=== PATIENT | female | born 1970 | race Caucasian/White ===

== ENCOUNTER 2021-05-21 07:22 | Outpatient (REF) | payer OTHER, SELFPAY ==
--- NOTE | ~2021-05-21 | MM_ITS ---
EXAMINATION: MM SCREENING DIGITAL BREAST TOMOSYNTHESIS, BILATERAL CLINICAL INFORMATION: Screening. Asymptomatic. The lifetime risk of breast cancer based on the Tyrer-Cuzick Model is 13%. COMPARISON: Mammography: 03/20/2019, 06/23/2018, 04/01/2017 TECHNIQUE: Digital breast tomosynthesis is performed in both the craniocaudal and mediolateral oblique views along with computer-aided detection (CAD). Synthesized 2D images are generated from the tomosynthesis. FINDINGS: The breasts are heterogeneously dense, which may obscure small masses (ACR BI-RADS breast composition Category c). There are no significant masses, abnormal calcifications, or other abnormalities. Parenchymal pattern is similar to prior exams. No developing density. Skin contours are smooth. MM/MM tomosynthesis screening BI IMPRESSION: No mammographic evidence of malignancy. ASSESSMENT: BI-RADS 1: Negative RECOMMENDATION: Routine annual mammography screening. This patient's information was entered into a reminder system with a target due date for their next mammogram.
== END 2021-05-21 07:23 | disposition home or self-care (01) ==
LOC: HO.MAMMO 07:22
PROVIDERS: Visit Provider Family Medicine
DX: Z12.31 Encounter for screening mammogram for malignant neoplasm of breast (principal)
CPT/HCPCS: 77063; 77067

== ENCOUNTER 2022-07-13 11:35 | Outpatient (REF) | payer OTHER, SELFPAY ==
--- NOTE | ~2022-07-13 | MM_ITS ---
EXAMINATION: MM SCREENING DIGITAL BREAST TOMOSYNTHESIS, BILATERAL CLINICAL INFORMATION: Screening. The lifetime risk of breast cancer based on the Tyrer-Cuzick Model is 16%. COMPARISON: Mammography: 05/21/2021, 03/20/2019, 06/23/2018 TECHNIQUE: Digital breast tomosynthesis is performed in both the craniocaudal and mediolateral oblique views along with computer-aided detection (CAD). Synthesized 2D images are generated from the tomosynthesis. FINDINGS: The breasts are heterogeneously dense, which may obscure small masses (ACR BI-RADS breast composition Category c). There are no significant masses, abnormal calcifications, or other abnormalities. There is fibronodular parenchymal pattern similar to prior studies. No interval architectural abnormality or developing density. The axilla and skin contours are unremarkable. MM/MM tomosynthesis screening BI IMPRESSION: No mammographic evidence of malignancy. ASSESSMENT: BI-RADS 1: Negative RECOMMENDATION: Routine annual mammography screening. This patient's information was entered into a reminder system with a target due date for their next mammogram.
== END 2022-07-13 11:36 | disposition home or self-care (01) ==
LOC: HO.MAMMO 11:35
PROVIDERS: PCP Family Medicine; Visit Provider Family Medicine
DX: Z12.31 Encounter for screening mammogram for malignant neoplasm of breast (principal)
CPT/HCPCS: 77063; 77067

== ENCOUNTER → 2023-05-11 08:00 | Outpatient (BNV) | payer BC, SELFPAY | PROVIDERS: Visit Provider Psychiatry & Neurology Psychiatry | DX: F31.60 Bipolar disorder, current episode mixed, unspecified (principal) | CPT/HCPCS: 90792; 99213 ==

== ENCOUNTER 2023-05-13 14:52 | Emergency (ER) | payer BC, SELFPAY ==
[2023-05-13 16:02] VITALS: BP 149/88; PULSE 58; RESP 18; TEMP 36.4; O2SAT 98; BMI 37.6
--- NOTE | 2023-05-13 16:04 | ECG_ITS ---
Test Reason : HEADACHE Blood Pressure : / mmHG Vent. Rate : 060 BPM Atrial Rate : 060 BPM P-R Int : 124 ms QRS Dur : 076 ms QT Int : 442 ms P-R-T Axes : 027 058 060 degrees QTc Int : 442 ms Normal sinus rhythm Normal ECG When compared with ECG of 15-MAY-2013 12:49, Vent. rate has decreased BY 33 BPM Referred By: Nathaniel Avendano Electronically Signed By:KELSEY MCFADDEN
--- NOTE | 2023-05-13 16:06 | ED_ITS ---
HPI - General Adult General Chief complaint: Headache Stated complaint: nausea/ headache History of Present Illness HPI narrative: Left before being seen by Provider in the ED. Related Data Home Medications Medication Instructions Recorded Confirmed clonazepam 0.5 mg tablet 0.5 mg PO BID PRN anxiety 05/10/23 05/10/23 gabapentin 300 mg capsule 600 mg PO TID 05/10/23 05/10/23 lamotrigine 100 mg tablet 100 mg PO DAILY 05/10/23 05/10/23 lamotrigine 150 mg tablet 150 mg PO DAILY 05/10/23 05/10/23 lansoprazole 30 mg capsule,delayed 60 mg PO DAILY 05/10/23 05/10/23 release methylphenidate HCl 10 mg tablet 10 mg PO DAILY 05/10/23 05/10/23 topiramate 50 mg tablet 50 mg PO BID 05/10/23 05/10/23 venlafaxine 150 mg 150 mg PO DAILY 05/10/23 05/10/23 capsule,extended release 24 hr ziprasidone HCl 20 mg capsule 20 mg PO DAILY 05/10/23 05/10/23 Previous Rx's Medication Instructions Recorded lithium carbonate 300 mg tablet 900 mg (3 x 300 mg) PO BEDTIME #90 05/11/23 tabs Allergies Allergy/AdvReac Type Severity Reaction Status Date / Time Penicillins [PENICILLINS] Allergy Unknown HIVES Verified 05/13/23 16:02 Sulfa (Sulfonamide Allergy Unknown HIVES Verified 05/13/23 16:02 Antibiotics) [SULFA (SULFONAMIDE ANTIBIOTICS)] [facility] Past Medical History Medical History (Updated 05/16/23 @ 18:41 by MANAV Leung) delivery delivered Pre-diabetes HTN (hypertension) Neuropathy SCA-6 (spinocerebellar ataxia type 6) Surgical History (Updated 05/10/23 @ 11:45 by Adriane Almanza RN) History of tonsillectomy Hx of cholecystectomy Social History Social History Household Members: Children Household Members Other:: Bell's 11 year old son resides with her. Patient Tobacco Use Status: Current everyday Tobacco user Tobacco use type: Cigarette Cigarettes Per Day: 8 Advance Directives: No Advance Directives Information Provided: No Physical Exam ED Vital Signs: Vital Signs - 24 hr 05/13/23 16:02 Temperature 97.5 F Pulse Rate 58 Respiratory Rate 18 Blood Pressure 149/88 H Pulse Oximetry 98 Oxygen Delivery Method Room Air BMI result Body Mass Index 37.6 Course Course Course Narrative: RME: 52 yold female presents to the ED for nuasea, vomtiting, and than headache since yesterday. patient stateas no trauma or chest pain or shortness of breath. NEuro exam is intact. labs, EKG, SARS ordered Medical Decision Making Lab Data 05/13/23 16:47 05/13/23 16:47 Labs: Lab Results 05/13/23 05/13/23 Range/Units 16:47 17:33 WBC 12.4 H (4.8-10.8) X10*3/uL RBC 4.73 (4.20-5.50) X10*6/uL Hgb 15.2 (12.0-16.0) g/dl Hct 45.0 (37.0-47.0) % MCV 95.1 (80.0-98.0) fL MCH 32.1 (27.0-33.0) pg MCHC 33.8 (31.0-35.0) g/dl RDW 11.9 (11.0-16.0) % Plt Count 220 (160-400) X10*3/uL MPV 9.6 (9.4-12.3) fL Immature Gran % (Auto) 0.3 (0.0-0.4) % Neut % (Auto) 79.4 H (45-73) % Lymph % (Auto) 11.4 L (20-40) % [place] % (Auto) 7.2 (2-11) % Eos % (Auto) 1.4 (0-4) % Baso % (Auto) 0.3 (0-2) % Lymph # (Auto) 1.4 (1.2-4.9) X10*3/uL [place] # (Auto) 0.9 (0.1-1.2) X10*3/uL Eos # (Auto) 0.2 (0.0-0.4) X10*3/uL Baso # (Auto) 0.0 (0.0-0.2) X10*3/uL Abs Immat Gran (auto) 0.04 H (0.00-0.03) X10*3/uL Absolute Neuts (auto) 9.9 H (2.0-8.3) x10*3/uL Absolute Nucleated RBC 0.000 (0.0-0.012) X10*3/uL Nucleated RBC % (auto) 0.0 (0.0-0.2) /100WBC PT 11.8 (11.1-13.3) SEC INR 1.0 (0.9-1.1) APTT 32.2 (26.0-36.4) SEC Sodium 138 (135-145) mmol/L Potassium 4.4 (3.3-5.1) mmol/L Chloride 106 (96-108) mmol/L Carbon Dioxide 23 (22-29) mmol/L Anion Gap 13 (12-20) BUN 10 (9-16) mg/dL Creatinine 0.90 (0.5-1.4) mg/dL Estim Creat Clear Calc 98.0 Estimated GFR > 60 Random Glucose 88 (60-115) mg/dL Calcium 9.9 (8.4-10.2) mg/dL Total Bilirubin 0.7 (0.0-1.0) mg/dL AST 19 (5-31) U/L ALT 25 (0-31) U/L Alkaline Phosphatase 61 (39-117) U/L Troponin I High Sens < 2.7 (<3.5-17.0) ng/L Total Protein 7.2 (6.5-8.0) g/dL Albumin 4.4 (3.5-5.0) g/dL Lipase 11 (8-78) U/L Beta HCG, Quant < 2 mIU/mL Urine Color Yellow Urine Appearance Clear Urine pH 7.5 (5.0-9.0) Ur Specific [place] 1.020 (1.005-1.025) Urine Protein Negative (Neg-Trace) mg/dL Urine Glucose (UA) Negative (Negative) mg/dL Urine Ketones Trace (Negative) mg/dL Urine Blood Trace H (Negative) Urine Nitrite Negative (Negative) Ur Leukocyte Esterase Trace H (Negative) Urine RBC 11-20 H (0-2) /HPF Urine WBC 0-5 (0-5) /HPF Ur Squamous Epith Cells 3-5 (0-2) /HPF Urine Bacteria Trace (None Seen) Hyaline Casts 0-2 (0-2) /LPF Urine Test NEGATIVE (NEGATIVE) [place] 0.81 (0.60-1.20) mmol/L Influenza Type A (PCR) NEGATIVE (Negative) Influenza Type B (PCR) NEGATIVE (Negative) RSV RNA Qual (PCR) NEGATIVE (Negative) SARS-CoV-2 RNA (RT-PCR) NEGATIVE (Negative) Discharge Plan Discharge Clinical Impression: Headache Patient Disposition: Left W/O Completing Treatment Prescriptions: No Action lamotrigine 150 mg tablet 150 mg PO DAILY methylphenidate HCl 10 mg tablet 10 mg PO DAILY Patient Comments: Patient reports she has not had in a few days. 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 clonazepam 0.5 mg tablet 0.5 mg PO BID PRN (Reason: anxiety) Patient Comments: Patient took 3 tabs last night before bed d/t having a panic attack. Medication education provided and advised patient to take as prescribed. venlafaxine 150 mg capsule,extended release 24hr 150 mg PO DAILY ziprasidone HCl 20 mg capsule 20 mg PO DAILY Patient Comments: Patient stated she is working with her prescriber and is tapering off this medication. lansoprazole 30 mg capsule,delayed release(DR/EC) 60 mg PO DAILY gabapentin 300 mg capsule 600 mg PO TID lamotrigine 100 mg tablet 100 mg PO DAILY Patient Comments: Patient stated she takes in the morning. topiramate 50 mg tablet 50 mg PO BID Patient Comments: Patient reports she has not taken this in a while however reports she is supposed to be taken this medication. Rx Instructions: Last filled 03/26/23. lithium carbonate 300 mg tablet 900 mg PO BEDTIME Qty: 90 0RF Interventions: LWBS Worksheet Last Done: 05/13/23 20:03 Discharge Date/Time: 05/13/23 20:00
[2023-05-13 16:51] LABS: MANUAL DIFF FLAG NO
[2023-05-13 16:52] LABS: Basophils Percent Auto 0.3 % (0-2); Eosinophils Absolute Auto 0.2 X10*3/uL (0.0-0.4); Eosinophils Percent Auto 1.4 % (0-4); Hemoglobin 15.2 g/dl (12.0-16.0); Imm Gran Abs Auto 0.04 X10*3/uL (0.00-0.03); Imm Gran Pct Auto 0.3 % (0.0-0.4); Lymphocytes Absolute Auto 1.4 X10*3/uL (1.2-4.9); Lymphocytes Percent Auto 11.4 % (20-40); Mean Corpuscular HGB Conc 33.8 g/dl (31.0-35.0); Mean Corpuscular Hemoglobin 32.1 pg (27.0-33.0); Mean Corpuscular Volume 95.1 fL (80.0-98.0); Mean Platelet Volume 9.6 fL (9.4-12.3); Monocytes Absolute Auto 0.9 X10*3/uL (0.1-1.2); Monocytes Percent Auto 7.2 % (2-11); Neutrophils Absolute Auto 9.9 x10*3/uL (2.0-8.3); Neutrophils Percent Auto 79.4 % (45-73); Platelet Count 220 X10*3/uL (160-400); Red Blood Count 4.73 X10*6/uL (4.20-5.50); Red Cell Distribution Width 11.9 % (11.0-16.0); White Blood Count 12.4 X10*3/uL (4.8-10.8)
--- NOTE | 2023-05-13 16:56 | MHC.EDTECH ---
PATIENT EKG TAKEN AND WAS READ BY PROVIDER ,BLOOD DRAWN AND ,RSV /COVID SWAB COLLECTED ANSD SENT TO LAB .
[2023-05-13 16:57] LABS: Prothrombin Time 11.8 SEC (11.1-13.3)
[2023-05-13 17:01] LABS: Partial Thromboplastin Time 32.2 SEC (26.0-36.4)
[2023-05-13 17:13] LABS: Alanine Aminotransferase 25 U/L (0-31); Albumin Level 4.4 g/dL (3.5-5.0); Alkaline Phosphatase 61 U/L (39-117); Anion Gap 13 (12-20); Aspartate Amino Transferase 19 U/L (5-31); Bilirubin Total 0.7 mg/dL (0.0-1.0); Blood Urea Nitrogen 10 mg/dL (9-16); Calcium 9.9 mg/dL (8.4-10.2); Carbon Dioxide 23 mmol/L (22-29); Chloride 106 mmol/L (96-108); Estimated Glomerular Filt Rate > 60; Glucose Random 88 mg/dL (60-115); Lipase 11 U/L (8-78); Potassium 4.4 mmol/L (3.3-5.1); Sodium 138 mmol/L (135-145); Total Protein 7.2 g/dL (6.5-8.0)
[2023-05-13 17:21] LABS: HCG Quantitative < 2 mIU/mL
[2023-05-13 17:23] LABS: Troponin-I High Sensitivity < 2.7 ng/L (<3.5-17.0)
[2023-05-13 17:28] LABS: Influenza A PCR NEGATIVE (Negative); Influenza B PCR NEGATIVE (Negative); Resp Syncy Virus RNA Qual PCR NEGATIVE (Negative); SARS COV2 PCR INHOUSE NEGATIVE (Negative)
[2023-05-13 17:45] LABS: Appearance Urine Clear; Color Urine Yellow; Glucose Urine UA Negative (Negative); Leukocyte Esterase Urine Trace (Negative); Nitrite Urine Negative (Negative); PH 7.5 (5.0-9.0); UMIC TRIGGER UACC YES; Urine Blood Trace (Negative); Urine Ketones Trace mg/dL (Negative); Urine Protein Negative (Neg-Trace)
[2023-05-13 17:46] LABS: UPreg QC Valid YES; Urine Pregnancy NEGATIVE (NEGATIVE)
[2023-05-13 17:50] LABS: Bacteria Urine Trace (None Seen); Hyaline Casts Urine 0-2 /LPF (0-2); WBC Urine 0-5 /HPF (0-5)
[2023-05-13 18:18] LABS: Lithium 0.81 mmol/L (0.60-1.20)
--- NOTE | 2023-05-13 20:02 | PC.NURSE ---
Pt called in WR @ 1929 and again @ 1944, no answer in waiting room.
== END 2023-05-13 20:00 | disposition left against medical advice (07) ==
LOC: HO.ED 20:15
PROVIDERS: Physician Assistant; Emergency Provider Emergency Medicine
DX: R51.9 Headache, unspecified (principal); Z20.822 Contact with and (suspected) exposure to COVID-19; Z20.828 Contact with and (suspected) exposure to other viral communicable diseases; I10 Essential (primary) hypertension; R73.03 Prediabetes; F17.210 Nicotine dependence, cigarettes, uncomplicated; Z79.899 Other long term (current) drug therapy
CPT/HCPCS: 0241U; 36415; 80053; 80178; 81001; 81025; 83690; 84484; 84702; 85025; 85610; 85730; 93005; 99283

== ENCOUNTER 2023-05-19 14:04 | Outpatient (REF) | payer BC, SELFPAY ==
[2023-05-19 16:00] LABS: Lithium 0.31 mmol/L (0.60-1.20)
== END 2023-05-19 14:05 | disposition home or self-care (01) ==
LOC: HO.LAB 14:04
PROVIDERS: PCP Family Medicine; Visit Provider Psychiatry & Neurology Psychiatry
DX: F31.75 Bipolar disorder, in partial remission, most recent episode depressed (principal); Z79.899 Other long term (current) drug therapy
CPT/HCPCS: 36415; 80178

== ENCOUNTER 2023-05-21 08:30 | Outpatient (RCR) | payer BC, SELFPAY ==
[2023-05-10 11:47] VITALS: BP 126/82; PULSE 68; TEMP 36.6
[2023-05-10 11:50] VITALS: BMI 38.1
--- NOTE | 2023-05-10 12:39 | PC.ADMIT ---
Patient is a 52 year old female who self referred to [facility] with a dx of Bipolar disorder who has been struggling with cycling between zhang and depression sxs. She reports many stresses and stated she is struggling with break up with partner of 20 years ,son is on the autism spectrum and is being bullied, I have no family and my sister suddenly they found her on [employer] last year . Patient was working remotely at home. 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 Taking a leave of absence from work to work on her mental health. Patient reports she has a dx of Spinal Cerebal Ataxia affects speech, swallowing, eyesight. She is seeing a neurologist as a result. Worried she will be in a wheelchair by the time she is 59 years old. Bell is alert and oriented x4. Calm and cooperative. She presents with depressed mood and affect. Tearful at times. Feelings of helplessness and hopelessness. She denied SI. Bell was given a copy of her safety plan and I reviewed this with her. Medications reconciled with patient and patient's pharmacy. She reports she overtook her Clonazepam last night as she was having a panic attack. Reports taking 3 tabs 0.5 mg each before bed. Advised her to take as prescribed and medication education provided. Stated she has not taken Topamax for a while as she ran out. Stated her prescriber wants her to get lab work done.
--- NOTE | 2023-05-11 11:08 | P.HPPSP_ITS ---
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 She states that she has been under a lot of pressure, ending a 20-year-old relationships, her sister dying earlier this year, being taken off lithium by her relatively new prescriber at [facility] because ?it is not good for your body?. She has been put on Latuda which he did not like and is being tapered off and is down to 20 mg. She has a longstanding history of bipolar disorder with both depressive and hypomanic episodes, accompanied by classic symptoms. Her manic episodes have been more frequent off lithium and she states that on lithium she felt extremely ?normal?. She is still on 300 mg which is not doing much for her. Previously she had been on 900-1200 mg. She denies any complications, thyroid renal issues. She has been using some alcohol, 4 5 beers a few times a week as a way of coping. Additionally she is on Effexor XR 150 mg, Geodon 20 mg, lithium 300 mg, Lamictal 250 mg and Klonopin 0.5 mg for anxiety attacks. She does not use it that often except recently. She is also on gabapentin 1500 mg a day for neurological problem. No history of hospitalizations. No suicidal ideations or attempts. She is waiting to be assigned a therapist at [facility] Past Psychiatric History: Outpatient [facility] Medical History (Updated 05/11/23 @ 11:15 by Daylin Pereira MD) delivery delivered Pre-diabetes HTN (hypertension) Neuropathy SCA-6 (spinocerebellar ataxia type 6) Surgical History (Updated 05/10/23 @ 11:45 by Adriane Almanza RN) History of tonsillectomy Hx of cholecystectomy Social History: Bell he is 1 of 4 siblings. One sister is . Both parents are . She has a master's degree. She has had no marriages and has the 11-year-old son with the father not involved. 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 Substance History: Some recent alcohol abuse Trauma History: None Diagnostics Vital Signs (24Hr): Vital Signs - 24 hr 05/10/23 11:47 Temperature 97.9 F Pulse Rate 68 Blood Pressure 126/82 BMI result Body Mass Index 38.1 Meds/Allergies Meds Home Medications Medication Instructions Recorded Confirmed Type clonazepam 0.5 mg tablet 0.5 mg PO BID PRN anxiety 05/10/23 05/10/23 History gabapentin 300 mg capsule 600 mg PO TID 05/10/23 05/10/23 History lamotrigine 100 mg tablet 100 mg PO DAILY 05/10/23 05/10/23 History lamotrigine 150 mg tablet 150 mg PO DAILY 05/10/23 05/10/23 History lansoprazole 30 mg capsule,delayed 60 mg PO DAILY 05/10/23 05/10/23 History release methylphenidate HCl 10 mg tablet 10 mg PO DAILY 05/10/23 05/10/23 History topiramate 50 mg tablet 50 mg PO BID 05/10/23 05/10/23 History venlafaxine 150 mg 150 mg PO DAILY 05/10/23 05/10/23 History capsule,extended release 24 hr ziprasidone HCl 20 mg capsule 20 mg PO DAILY 05/10/23 05/10/23 History Allergies Allergies Allergy/AdvReac Type Severity Reaction Status Date / Time Penicillins [PENICILLINS] Allergy Unknown HIVES Unverified 05/02/20 15:31 Sulfa (Sulfonamide Allergy Unknown HIVES Unverified 05/02/20 15:31 Antibiotics) [SULFA (SULFONAMIDE ANTIBIOTICS)] Mental Status Exam Mental Status Exam Narrative: In today's visit she is alert, oriented and pleasant. Normal speech. Good eye contact. Affect is appropriate and varied. No signs of hypomania. No signs of psychosis. No suicidal homicidal ideations. Cognitively intact. Judgment is intact Assessment & Plan Assessment & Plan (1) Bipolar 1 disorder, mixed: Status: Acute Code(s): F31.60 - Bipolar disorder, current episode mixed, unspecified Plan Bell meets criteria for partial hospitalization. I suggested stopping the Geodon and going back up on the lithium to 900 mg. Labs were ordered. I did discuss with her issues pertaining to long-term use of lithium Patient educated on: diagnosis, medication risk/benefits and substance abuse Certification I certify that partial hospital treatment is medically necessary due to the symptoms and problems resulting from the patient's mental illness and the failure to treat the patient at the partial hospital level of care would likely result in the patient requiring inpatient psychiatric care which could not be prevented at a less intensive level of care. Time Spent With Patient Time: Total time managing care of this patient today ____ minutes.
--- NOTE | 2023-05-14 08:55 | HO.PHP ---
The clients case was reviewed and opened in treatment team.
--- NOTE | 2023-05-14 09:25 | PC.NURSE ---
Patient stated she was in the ER for 5 hours last night stated she was vomiting. She stated her blood work is showing an infection thus she is going to see her PHP today. PHP staff is aware.
--- NOTE | 2023-05-18 11:42 | P.PNPSP_ITS ---
Subjective Subjective Date of Service: 05/18/23 Reason For Visit: depression Interim History: Bell is seen for follow-up. She talked about the lithium which he has started and is up to 900 mg. She did have some nausea in the beginning but she was taking it on empty stomach. Since she has been eating with it she is doing better. I suggested doing most if not all of the 900 mg at night. She still is not done the blood work and will do so tomorrow which we will review. She talked about areas that the program has been very helpful to her. Her other medications were individually reviewed and maintained. No new prescriptions were sent in Medication Compliance: Yes Side effects from medications: Yes (Nausea) Attending Groups: Yes Review of Systems Review of Systems Some nausea secondary to medications Yes all other systems are reviewed and are negative Mental Status Exam Mental Status Exam Narrative: In today's visit she is alert, oriented and pleasant. Normal speech. Good eye contact. Affect is appropriate and varied. No signs of hypomania. No signs of psychosis. No suicidal homicidal ideations. Cognitively intact. Judgment is intact Diagnostics Vital Signs (24Hr): BMI result Body Mass Index 38.1 Assessment & Plan Assessment & Plan (1) Bipolar 1 disorder, mixed: Status: Acute Code(s): F31.60 - Bipolar disorder, current episode mixed, unspecified Plan Continue partial hospital. Continue current medications. Get lab work for lithium tomorrow Patient educated on: medication risk/benefits Certification I certify that partial hospital treatment is medically necessary due to the symptoms and problems resulting from the patient's mental illness and the failure to treat the patient at the partial hospital level of care would likely result in the patient requiring inpatient psychiatric care which could not be prevented at a less intensive level of care. Total time managing care of this patient today ____ minutes. Discharge Plan Discharge Attending provider: Popeye Bang Medications: Changed lithium carbonate 300 mg tablet 900 mg PO BEDTIME Qty: 90 0RF No Action lamotrigine 150 mg tablet 150 mg PO DAILY methylphenidate HCl 10 mg tablet 10 mg PO DAILY Patient Comments: Patient reports she has not had in a few days. 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 clonazepam 0.5 mg tablet 0.5 mg PO BID PRN (Reason: anxiety) Patient Comments: Patient took 3 tabs last night before bed d/t having a panic attack. Medication education provided and advised patient to take as prescribed. venlafaxine 150 mg capsule,extended release 24hr 150 mg PO DAILY ziprasidone HCl 20 mg capsule 20 mg PO DAILY Patient Comments: Patient stated she is working with her prescriber and is tapering off this medication. lansoprazole 30 mg capsule,delayed release(DR/EC) 60 mg PO DAILY gabapentin 300 mg capsule 600 mg PO TID lamotrigine 100 mg tablet 100 mg PO DAILY Patient Comments: Patient stated she takes in the morning. topiramate 50 mg tablet 50 mg PO BID Patient Comments: Patient reports she has not taken this in a while however reports she is supposed to be taken this medication. Rx Instructions: Last filled 03/26/23.
--- NOTE | 2023-05-25 16:31 | HO.PHP ---
The client called out today because she could not get her son to school. She is safe and will be here tomorrow.
--- NOTE | 2023-05-26 09:38 | HO.PHP ---
I called Bell because she did not come in this morning. She did not answer and her mailbox was full therefore I could not leave a message. I will attempt to call her again in 15 minutes.
--- NOTE | 2023-05-26 10:05 | HO.PHP ---
I called the clients emergency contact Jhonny Walsh to inquire about the client absence. Jhonny states that the client was very intoxication last night and she has not heard from her this morning. I then called the [place] police dept and requested a safety check. Dispatcher Jamison took the information and will sent someone out to check on her.
--- NOTE | 2023-05-27 16:12 | HO.PHP ---
I called and spoke with the client . She has been out many days and was drinking two days ago. We discussed her difficulty staying sober and need for a substance program. She agreed to be discharged and I will make a referral to a substance IOP . She states that she did not drink today and that she is safe.
--- NOTE | 2023-05-31 14:38 | HO.PHP ---
I called the client on Monday 05/28 and was unable to leave a message as her mailbox was full. I called again today and was able to leave a message to call me re referral for substance tx.
--- NOTE | 2023-06-01 15:44 | HO.PHP ---
I called the client to check in and make discharge plans. She did not answer and I left a message to call back.
== END 2023-05-21 23:59 | disposition home or self-care (01) ==
LOC: HO.PHPA 08:30
PROVIDERS: Visit Provider Psychiatry & Neurology Psychiatry
DX: F31.60 Bipolar disorder, current episode mixed, unspecified (principal); Z79.899 Other long term (current) drug therapy
CPT/HCPCS: 90791; 90853

== ENCOUNTER 2023-06-01 21:15 | Inpatient (IN) | payer BC, SELFPAY ==
[2023-06-01 21:22] VITALS: BP 132/82; PULSE 87; O2SAT 94
[2023-06-01 21:45] VITALS: BP 124/70; PULSE 72; RESP 18; TEMP 36.6; O2SAT 95; BMI 37.9
[2023-06-01 23:55] LABS: MANUAL DIFF FLAG NO
[2023-06-01 23:56] LABS: Basophils Absolute Auto 0.1 X10*3/uL (0.0-0.2); Basophils Percent Auto 0.8 % (0-2); Eosinophils Absolute Auto 0.6 X10*3/uL (0.0-0.4); Eosinophils Percent Auto 5.4 % (0-4); Hematocrit 44.8 % (37.0-47.0); Hemoglobin 14.9 g/dl (12.0-16.0); Imm Gran Abs Auto 0.07 X10*3/uL (0.00-0.03); Imm Gran Pct Auto 0.6 % (0.0-0.4); Lymphocytes Absolute Auto 2.8 X10*3/uL (1.2-4.9); Lymphocytes Percent Auto 23.6 % (20-40); Mean Corpuscular HGB Conc 33.3 g/dl (31.0-35.0); Mean Corpuscular Volume 96.3 fL (80.0-98.0); Mean Platelet Volume 9.6 fL (9.4-12.3); Monocytes Absolute Auto 0.6 X10*3/uL (0.1-1.2); Neutrophils Absolute Auto 7.6 x10*3/uL (2.0-8.3); Neutrophils Percent Auto 64.6 % (45-73); Platelet Count 283 X10*3/uL (160-400); Red Blood Count 4.65 X10*6/uL (4.20-5.50); Red Cell Distribution Width 12.5 % (11.0-16.0); White Blood Count 11.7 X10*3/uL (4.8-10.8)
--- NOTE | 2023-06-02 | ECG_ITS ---
Test Reason : medical clearence Blood Pressure : / mmHG Vent. Rate : 067 BPM Atrial Rate : 067 BPM P-R Int : 138 ms QRS Dur : 078 ms QT Int : 428 ms P-R-T Axes : 075 049 033 degrees QTc Int : 452 ms Normal sinus rhythm Normal ECG When compared with ECG of 13-MAY-2023 16:52, No significant change was found Referred By: Celena Warren Electronically Signed By:TIARRA LAND MD
[2023-06-02 00:02] VITALS: BP 131/79; PULSE 76; RESP 17; TEMP 36.8; O2SAT 97
--- NOTE | 2023-06-02 00:07 | PC.NURSE ---
Addendum entered by Effie Billarnacion 06/02/23 00:13: PT denies SI/HI at this time Original Note: Patient is alert and oriented, brought in from waiting room. Pt reports drinking 5 shots and two beers prior to arrival. Notes she is anxious and depressed and wants inpatient psych admission but is not interested in detox. Pt reports she doesn't drinking everyday but feels that she is self-medicating with etoh to treat her bipolar disorder. PT currently taking lithium and lamictal for bpd that she reports she takes as prescribed. PT was recently in a partial hospitalization program through [facility] from 05/11-05/25 in which her lithium was increased from 300mg to 900mg. PT notes a slight improvement in her bpd symptoms. PT followed by [facility] for medication reviews pt unsure when she is schedule for her next review. VSS stable, CIWA 1, 0/10 pain. Call garcia within reach. Plan of care ongoing.
[2023-06-02 00:13] LABS: Alanine Aminotransferase 19 U/L (0-31); Albumin Level 4.6 g/dL (3.5-5.0); Alkaline Phosphatase 75 U/L (39-117); Anion Gap 16 (12-20); Aspartate Amino Transferase 17 U/L (5-31); Bilirubin Total 0.4 mg/dL (0.0-1.0); Blood Urea Nitrogen 10 mg/dL (9-16); Calcium 9.5 mg/dL (8.4-10.2); Carbon Dioxide 21 mmol/L (22-29); Chloride 110 mmol/L (96-108); Creatinine Clr Calc Pharmacy 89.3; Estimated Glomerular Filt Rate > 60; Ethanol 174 mg/dL; Glucose Random 92 mg/dL (60-115); Potassium 4.1 mmol/L (3.3-5.1); Sodium 143 mmol/L (135-145); Total Protein 7.6 g/dL (6.5-8.0)
--- NOTE | 2023-06-02 00:13 | ED.ALCOHOL ---
HPI - Alcohol General Chief Complaint: ETOH/Substance Use Stated Complaint: ETOH Time Seen by Provider: 06/01/23 23:55 Source: patient and old records reviewed Mode of arrival: EMS Limitations: no limitations History of Present Illness HPI narrative: 52 yo female with PMH of bipolar disorder and ETOH abuse presents with depression and wants to talk to crisis she states she is not really taking her medications she is in crisis she is drinking all the time to self medicate and doing things she shouldn't. She has no SI/HI but is hopeless. DCF now involved due to her drinking. Asking to go inpatient for her mental health MD complaint: alcohol intoxication Last drink: Hours (ago) Chronic alcohol use: Yes Previous visits for alcohol intoxication: No Recent trauma: No Associated symptoms: depression Treatments prior to arrival: none Related Data Home Medications Medication Instructions Recorded Confirmed clonazepam 0.5 mg tablet 0.5 mg PO BID PRN anxiety 05/10/23 05/10/23 gabapentin 300 mg capsule 600 mg PO TID 05/10/23 05/10/23 lamotrigine 100 mg tablet 100 mg PO DAILY 05/10/23 05/10/23 lamotrigine 150 mg tablet 150 mg PO DAILY 05/10/23 05/10/23 lansoprazole 30 mg capsule,delayed 60 mg PO DAILY 05/10/23 05/10/23 release methylphenidate HCl 10 mg tablet 10 mg PO DAILY 05/10/23 05/10/23 topiramate 50 mg tablet 50 mg PO BID 05/10/23 05/10/23 venlafaxine 150 mg 150 mg PO DAILY 05/10/23 05/10/23 capsule,extended release 24 hr ziprasidone HCl 20 mg capsule 20 mg PO DAILY 05/10/23 05/10/23 Previous Rx's Medication Instructions Recorded lithium carbonate 300 mg tablet 900 mg (3 x 300 mg) PO BEDTIME #90 05/11/23 tabs Allergies Allergy/AdvReac Type Severity Reaction Status Date / Time Penicillins [PENICILLINS] Allergy Unknown HIVES Verified 06/01/23 21:50 Sulfa (Sulfonamide Allergy Unknown HIVES Verified 06/01/23 21:50 Antibiotics) [SULFA (SULFONAMIDE ANTIBIOTICS)] metformin Allergy Diarrhea Verified 06/01/23 21:50 Review of Systems Review of Systems: Constitutional : No Fever, No Chills ENT/Mouth : No Ear Pain, No Nasal Congestion, No sore throat Eyes: No Eye Pain, No Swelling, No Redness Cardiovascular : No Chest Pain, No SOB Respiratory : No Cough, No Sputum, No Dyspnea Gastrointestinal : No Nausea, No Vomiting, No Diarrhea, No Hematochezia, No Melena Genitourinary : No Dysuria, No Urinary Frequency, No Hematuria Musculoskeletal : No Myalgias Skin : No Skin Lesions, No rash Neuro : No Weakness, No Numbness, No Paresthesias, No Dizziness, No Headache Psych : positive Anxiety, positive Depression, no SI/HI Heme/Lymph: No Lymphadenopathy Endocrine : No Polyuria, No Polydipsia All other systems reviewed and are negative [facility] Past Medical History Attestation statement: The following information was validated with the patient. Source: old records reviewed Medical History Brandt esophagus Obstructive sleep apnea delivery delivered Pre-diabetes HTN (hypertension) Neuropathy SCA-6 (spinocerebellar ataxia type 6) Surgical History History of tonsillectomy Hx of cholecystectomy Social History Social History Household Members: Children Household Members Other:: Bell's 11 year old son resides with her. Alcohol intake: current Alcohol intake frequency: 3 or more drinks per day Alcohol type: beer and hard liquor Patient Tobacco Use Status: Current everyday Tobacco user Tobacco use type: Cigarette Cigarettes Per Day: 8 Smoked in Last 30 Days: Yes Use of substances other than those prescribed or required for medical reasons: No Advance Directives: No Advance Directives Information Provided: No Patient : No Physical Exam ED Vital Signs: Vital Signs - 24 hr 06/01/23 21:45 06/02/23 00:02 Temperature 97.9 F 98.2 F Pulse Rate 72 76 Respiratory Rate 18 17 Blood Pressure 124/70 131/79 Pulse Oximetry 95 97 Oxygen Delivery Method Room Air Room Air BMI result Body Mass Index 37.9 Appearance: Alert. Oriented X3. No acute distress. appears under the influence Eyes: Pupils equal, round and reactive to light. ENT: Pharynx normal. Neck: Normal inspection. Neck supple. CVS: Normal heart rate and rhythm. Pulses normal. Respiratory: No respiratory distress. Breath sounds normal. Abdomen: Soft and nontender. Skin: Skin warm and dry. Normal skin color. Normal skin turgor. Extremities: No lower extremity edema. No calf ttp Neuro: Oriented X 3. No motor deficit. No sensory deficit. CN2-12 intact Course Course Course Narrative: Physician observation started at 1227am Patient placed in physician observation because the patient needed more time for CARE team to assess the need for psych admission. At the time observation was started the patient's vitals were stable, patient is alert and oriented Neuro: nonfocal, CV RRR, Lungs clear Medical Decision Making Medical Decision Making MDM Narrative: 52 yo female with bipolar disorder here with c/o depresison not taking care of herself and now DCF involved wants to talk to crisis at this time labs, CARE team consult. stable for DC Differential Diagnosis Differential Diagnoses: The differential diagnosis associated with the presentation includes intoxication, depression Admission/Observation Consideration of admission/observation: Escalation of care including admission/observation considered observe until seen by CARE team Consult Healthcare Provider Management of the patient was discussed with: Behavioral Health Provider Lab Data [facility] Lab Attestation statement: I reviewed the patient's lab results. 06/01/23 23:50 06/01/23 23:50 Labs: Lab Results 06/01/23 06/02/23 Range/Units 23:50 00:05 WBC 11.7 H (4.8-10.8) X10*3/uL RBC 4.65 (4.20-5.50) X10*6/uL Hgb 14.9 (12.0-16.0) g/dl Hct 44.8 (37.0-47.0) % MCV 96.3 (80.0-98.0) fL MCH 32.0 (27.0-33.0) pg MCHC 33.3 (31.0-35.0) g/dl RDW 12.5 (11.0-16.0) % Plt Count 283 D (160-400) X10*3/uL MPV 9.6 (9.4-12.3) fL Immature Gran % (Auto) 0.6 H (0.0-0.4) % Neut % (Auto) 64.6 (45-73) % Lymph % (Auto) 23.6 (20-40) % [place] % (Auto) 5.0 (2-11) % Eos % (Auto) 5.4 H (0-4) % Baso % (Auto) 0.8 (0-2) % Lymph # (Auto) 2.8 (1.2-4.9) X10*3/uL [place] # (Auto) 0.6 (0.1-1.2) X10*3/uL Eos # (Auto) 0.6 H (0.0-0.4) X10*3/uL Baso # (Auto) 0.1 (0.0-0.2) X10*3/uL Abs Immat Gran (auto) 0.07 H (0.00-0.03) X10*3/uL Absolute Neuts (auto) 7.6 (2.0-8.3) x10*3/uL Absolute Nucleated RBC 0.000 (0.0-0.012) X10*3/uL Nucleated RBC % (auto) 0.0 (0.0-0.2) /100WBC Sodium 143 (135-145) mmol/L Potassium 4.1 (3.3-5.1) mmol/L Chloride 110 H (96-108) mmol/L Carbon Dioxide 21 L (22-29) mmol/L Anion Gap 16 (12-20) BUN 10 (9-16) mg/dL Creatinine 0.96 (0.5-1.4) mg/dL Estim Creat Clear Calc 89.3 Estimated GFR > 60 Random Glucose 92 (60-115) mg/dL Calcium 9.5 (8.4-10.2) mg/dL Total Bilirubin 0.4 (0.0-1.0) mg/dL AST 17 (5-31) U/L ALT 19 (0-31) U/L Alkaline Phosphatase 75 (39-117) U/L Total Protein 7.6 (6.5-8.0) g/dL Albumin 4.6 (3.5-5.0) g/dL Urine Opiates Screen Not Detected (Not Detect) Urine Fentanyl Screen Not Detected (Not Detect) Ur Barbiturates Screen Not Detected (Not Detect) Ur Phencyclidine Scrn Not Detected (Not Detect) Ur Amphetamines Screen Not Detected (Not Detect) U Benzodiazepines Scrn Not Detected (Not Detect) Urine Cocaine Screen POSITIVE H (Not Detect) U Marijuana (THC) Screen Not Detected (Not Detect) Ethyl Alcohol 174 mg/dL External Record Review External record reviewed: Inpatient record Social Determinants Patient?s care significantly limited by Social Determinants of Health including: Problems related to primary support group Discharge Plan Discharge Clinical Impression: Misuse of cocaine Alcoholic intoxication Qualifiers: Complication of substance-induced condition: uncomplicated Qualified Code(s): F10.920 - Alcohol use, unspecified with intoxication, uncomplicated Patient Disposition: Still a Patient Prescriptions: No Action lamotrigine 150 mg tablet 150 mg PO DAILY methylphenidate HCl 10 mg tablet 10 mg PO DAILY Patient Comments: Patient reports she has not had in a few days. Prescription is waiting for patient to filler picker at pharmacy. clonazepam 0.5 mg tablet 0.5 mg PO BID PRN (Reason: anxiety) Patient Comments: Patient took 3 tabs last night before bed d/t having a panic attack. Medication education provided and advised patient to take as prescribed. venlafaxine 150 mg capsule,extended release 24hr 150 mg PO DAILY ziprasidone HCl 20 mg capsule 20 mg PO DAILY Patient Comments: Patient stated she is working with her prescriber and is tapering off this medication. lansoprazole 30 mg capsule,delayed release(DR/EC) 60 mg PO DAILY gabapentin 300 mg capsule 600 mg PO TID lamotrigine 100 mg tablet 100 mg PO DAILY Patient Comments: Patient stated she takes in the morning. topiramate 50 mg tablet 50 mg PO BID Patient Comments: Patient reports she has not taken this in a while however reports she is supposed to be taken this medication. Rx Instructions: Last filled 03/26/23. lithium carbonate 300 mg tablet 900 mg PO BEDTIME Qty: 90 0RF
[2023-06-02 00:22] LABS: Amphetamine Screen Urine Not Detected (Not Detect); Barbiturates, Urine Not Detected (Not Detect); Benzodiazepines Screen Urine Not Detected (Not Detect); Cannabinoid Screen Urine Not Detected (Not Detect); Cocaine Screen Urine POSITIVE (Not Detect); Fentanyl, urine Not Detected (Not Detect); Opiate Screen Urine Not Detected (Not Detect); Phencyclidine Screen Urine Not Detected (Not Detect)
[2023-06-02 01:46] VITALS: BP 120/59; PULSE 78; RESP 18; TEMP 36.6; O2SAT 97
[2023-06-02 01:46] LABS: Lithium 0.64 mmol/L (0.60-1.20)
--- NOTE | 2023-06-02 06:39 | PC.NURSE ---
pATIENT SLEPT THROUGH THE NIGHT, NO DISTRESS OBSERVED/REPORTED, ASYMPTOMATIC OF ETOH WITHDRAWAL AT THIS TIME, MED REC COMPLETED/PENDING PROVIDER'S APPROVAL, VSS, CARE CONSULT ORDERED/PENDING EVALUATION, LABS COMPLETED/RESULTED, BEHAVIOR NON CONCERNING, WILL CONTINUE TO MONITOR
--- NOTE | 2023-06-02 07:10 | PC.NURSE ---
patient appears to remain asleep at present respirations are even and unlabopred patient appears in no distress
[2023-06-02 08:01] VITALS: BP 142/93; PULSE 75; RESP 15; TEMP 36.4; O2SAT 97
[2023-06-02 08:10] LABS: Appearance Urine Clear; Color Urine Yellow; Glucose Urine UA Negative (Negative); Leukocyte Esterase Urine Negative (Negative); Nitrite Urine Negative (Negative); PH 5.5 (5.0-9.0); Specific Gravity - Urine 1.015 (1.005-1.025); Urine Blood Negative (Negative); Urine Ketones Negative (Negative); Urine Protein Negative (Neg-Trace)
[2023-06-02 08:13] LABS: Bacteria Urine 1+ (None Seen); RBC Urine 0-2 /HPF (0-2); WBC Urine 0-5 /HPF (0-5)
[2023-06-02] MEDS: clonazePAM 0.5 MG TABLET PO ×2 (08:38→20:24)
[2023-06-02] MEDS: Venlafaxine HCl ER 150 MG CAP.ER.24H PO (08:38)
[2023-06-02] MEDS: Gabapentin 300 MG CAPSULE 600 MG PO ×3 (08:38→20:24)
[2023-06-02] MEDS: Atorvastatin Calcium 10 MG TABLET PO (08:38)
[2023-06-02] MEDS: Topiramate 25 MG TABLET 50 MG PO ×2 (08:39→20:25)
--- NOTE | 2023-06-02 08:46 | PC.NURSE ---
patient reports not taking geodon for abourt 2 weeks and providr had increased lithium. also requested lansoprazole for gerd. will request from provider equivalent
--- NOTE | 2023-06-02 09:31 | PHA.MEDREC ---
Pharmacy Consult ? Medication Reconciliation Pharmacy has completed the medication reconciliation. pharmacy has reviewed med rec done by Michael and updates done by Kylie.
[2023-06-02] MEDS: Omeprazole 40 MG CAPSULE.DR PO (10:18)
[2023-06-02 12:43] VITALS: BP 146/79; PULSE 75; RESP 18; TEMP 36.7; O2SAT 98
--- NOTE | 2023-06-02 13:13 | PC.ADMIT ---
Pt came onto the unit around 1240 pm, CV signed, belongings inventoried and skin check done by TW and RN Sushma Mack. Contraband list gone over with pt, refused orientation to unit and admission assessment at this time, requesting to lay down and be left alone at this time.
[2023-06-02] MEDS: Thiamine HCL 100 MG TABLET PO (16:06)
[2023-06-02 18:00] VITALS: BP 110/67; PULSE 71; RESP 15; TEMP 36.4; O2SAT 93
--- NOTE | 2023-06-02 18:25 | PC.ADMIT ---
Bell was admitted to [facility] at 12:30 from [facility] [place] [place] ED POD on a CV for treatment of Bipolar disorder and ETOH use. Pt presents to ED with depression and wants to talk to a crisis, as she is not always taking her medications and is drinking all the time to self medicate. Per Crisis assessment, DCF is now involved d/t patient ETOH use.? Pt is alert and oriented to person, place and situation. Pt is cooperative, but tired. Pt mood is tired, anxious and depressed. Pt affect is depressed and anxious. Pt reports ETOH use, last use 2 nights ago of 6 drinks, has a CIWA Q4hr, Pt reports no withdrawal symptoms. Pt has a linear thought process and is organized in thought. Pt denies SI/HI and reports she can come to staff if these thoughts arise. Pt denies AH/VH and does not appear to be responding to internal stimuli. Pt reports having a normal appetite and no recent weight loss. Pt reports sleeping well at night. Pt signed legals. Pt is on 15 minute safety checks. Provider is aware of admission, orders are placed. Begin treatment plan and monitor for safety.
[2023-06-02] MEDS: lamoTRIgine 25 MG TABLET 150 MG PO (20:22)
[2023-06-02] MEDS: Magnesium Hydrox/Alum Hydrox 30 ML ORAL.SUSP PO (20:22)
[2023-06-02] MEDS: Lithium Carbonate 300 MG CAPSULE 900 MG PO (20:23)
[2023-06-03 07:00] VITALS: BMI 37.9
[2023-06-03 08:15] VITALS: BP 143/79; PULSE 74; RESP 16; TEMP 36.2; O2SAT 97
[2023-06-03 08:44] LABS: Estimated Average Glucose 100 mg/dL; Hemoglobin A1C 110.9111 umol/L; Hemoglobin A1c % 5.1 % (<6.0)
[2023-06-03 09:05] LABS: Alanine Aminotransferase 17 U/L (0-31); Albumin Level 4.2 g/dL (3.5-5.0); Alkaline Phosphatase 74 U/L (39-117); Anion Gap 12 (12-20); Aspartate Amino Transferase 14 U/L (5-31); Bilirubin Total 0.9 mg/dL (0.0-1.0); Blood Urea Nitrogen 15 mg/dL (9-16); Calcium 9.7 mg/dL (8.4-10.2); Carbon Dioxide 23 mmol/L (22-29); Chloride 109 mmol/L (96-108); Cholesterol 153 mg/dL (<200); Creatinine Clr Calc Pharmacy 89.3; Estimated Glomerular Filt Rate > 60; Glucose Fasting 103 mg/dL (60-99); HDL Cholesterol 39 mg/dL (>40); LDL Cholesterol Calculated 93 mg/dL (<100); Potassium 4.3 mmol/L (3.3-5.1); Sodium 140 mmol/L (135-145); Total Protein 6.9 g/dL (6.5-8.0); Triglycerides 106 mg/dL (<150)
[2023-06-03 09:11] LABS: Thyroid Stimulating Hormone 4.49 uIU/mL (0.32-4.0)
[2023-06-03 09:32] LABS: Folate 13.4 ng/mL (> or = 4.0); Vitamin B12 288 pg/mL (200-900)
[2023-06-03] MEDS: Gabapentin 300 MG CAPSULE 600 MG PO ×3 (09:33→21:21)
[2023-06-03] MEDS: Omeprazole 40 MG CAPSULE.DR PO (09:33)
[2023-06-03] MEDS: Venlafaxine HCl ER 150 MG CAP.ER.24H PO (09:34)
[2023-06-03] MEDS: Atorvastatin Calcium 10 MG TABLET PO (09:34)
[2023-06-03] MEDS: Topiramate 25 MG TABLET 50 MG PO ×2 (09:34→21:20)
[2023-06-03] MEDS: Thiamine HCL 100 MG TABLET PO (09:34)
[2023-06-03] MEDS: Ziprasidone 20 MG CAPSULE PO (09:34)
--- NOTE | 2023-06-03 17:54 | HO.PSYADMNOT ---
HPI Date of Service: 06/03/23 Chief Complaint: SI Sources of Information: patient interviewed, chart reviewed and crisis/core team assessment reviewed HPI Subjective Notes: [place] Warning and Conditional Voluntary Healthcare Proxy: No Guardianship: No Medical Problems Affecting Mental Status: No Narrative: 52 yo female, history of bipolar disorder and alcohol use disorder presents with depressive sx. Reports she is not taking medications as directed and has increased alcohol consumption. Denies SI/HI. Ex-partner has filed with DCF on patient which appears to be the main precipitant for admission. Pt reports it was a difficult night , I was drinking and my ex called DCF. Reports she is not drinking daily, not having had any alcohol for ~4 days prior. Reports just completing PHP at the end of Apr where [place] was adjusted and she did well. Reports sobriety during PHP. Identifies a major stress as her son, who has ASD was recently bullied at school. Identifies depressive sx and mild breakthrough zhang at times. Past Psychiatric History: IP: Denies OP:CHD- will begin with a new clinician prescriber TBAmie PHP: [facility] [place] [place] 2023 Medical Evaluation Reviewed: Yes [facility] Medical History Brandt esophagus Obstructive sleep apnea delivery delivered Pre-diabetes HTN (hypertension) Neuropathy SCA-6 (spinocerebellar ataxia type 6) Surgical History History of tonsillectomy Hx of cholecystectomy Social History: Bell he is 1 of 4 siblings. One sister is . Both parents are . She has a master's degree. She has had no marriages and has the 11-year-old son with the father not involved. 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 Substance History: ETOH, Cocaine Trauma History: None Diagnostics Vital Signs (24Hr): Vital Signs - 24 hr 06/02/23 18:00 06/03/23 08:15 Temperature 97.6 F 97.1 F Pulse Rate 71 74 Respiratory Rate 15 16 Blood Pressure 110/67 143/79 H Pulse Oximetry 93 97 Oxygen Delivery Method Room Air Room Air Oxygen Flow Rate 92 BMI result Body Mass Index 37.9 Labs 06/01/23 23:50 06/03/23 08:14 Labs: Laboratory Results - last 48 hr 06/01/23 06/02/23 06/02/23 23:50 00:05 00:43 WBC 11.7 H RBC 4.65 Hgb 14.9 Hct 44.8 MCV 96.3 MCH 32.0 MCHC 33.3 RDW 12.5 Plt Count 283 D MPV 9.6 Immature Gran % (Auto) 0.6 H Neut % (Auto) 64.6 Lymph % (Auto) 23.6 [place] % (Auto) 5.0 Eos % (Auto) 5.4 H Baso % (Auto) 0.8 Lymph # (Auto) 2.8 [place] # (Auto) 0.6 Eos # (Auto) 0.6 H Baso # (Auto) 0.1 Abs Immat Gran (auto) 0.07 H Absolute Neuts (auto) 7.6 Absolute Nucleated RBC 0.000 Nucleated RBC % (auto) 0.0 Sodium 143 Potassium 4.1 Chloride 110 H Carbon Dioxide 21 L Anion Gap 16 BUN 10 Creatinine 0.96 Estim Creat Clear Calc 89.3 Estimated GFR > 60 Random Glucose 92 Fasting Glucose Estimat Average Glucose Hemoglobin A1c % Calcium 9.5 Total Bilirubin 0.4 AST 17 ALT 19 Alkaline Phosphatase 75 Total Protein 7.6 Albumin 4.6 Triglycerides Cholesterol LDL Cholesterol, Calc HDL Cholesterol Vitamin B12 Folate TSH Urine Color Yellow Urine Appearance Clear Urine pH 5.5 Ur Specific [place] 1.015 Urine Protein Negative Urine Glucose (UA) Negative Urine Ketones Negative Urine Blood Negative Urine Nitrite Negative Ur Leukocyte Esterase Negative Urine RBC 0-2 Urine WBC 0-5 Ur Squamous Epith Cells 3-5 Urine Bacteria 1+ Hyaline Casts 3-5 Urine Opiates Screen Not Detected Urine Fentanyl Screen Not Detected Ur Barbiturates Screen Not Detected Ur Phencyclidine Scrn Not Detected Ur Amphetamines Screen Not Detected U Benzodiazepines Scrn Not Detected [place] 0.64 Urine Cocaine Screen POSITIVE H U Marijuana (THC) Screen Not Detected Ethyl Alcohol 174 06/03/23 08:14 WBC RBC Hgb Hct MCV MCH MCHC RDW Plt Count MPV Immature Gran % (Auto) Neut % (Auto) Lymph % (Auto) [place] % (Auto) Eos % (Auto) Baso % (Auto) Lymph # (Auto) [place] # (Auto) Eos # (Auto) Baso # (Auto) Abs Immat Gran (auto) Absolute Neuts (auto) Absolute Nucleated RBC Nucleated RBC % (auto) Sodium 140 Potassium 4.3 Chloride 109 H Carbon Dioxide 23 Anion Gap 12 BUN 15 Creatinine 0.96 Estim Creat Clear Calc 89.3 Estimated GFR > 60 Random Glucose Fasting Glucose 103 H Estimat Average Glucose 100 Hemoglobin A1c % 5.1 Calcium 9.7 Total Bilirubin 0.9 AST 14 ALT 17 Alkaline Phosphatase 74 Total Protein 6.9 Albumin 4.2 Triglycerides 106 Cholesterol 153 LDL Cholesterol, Calc 93 HDL Cholesterol 39 L Vitamin B12 288 Folate 13.4 TSH 4.49 H Urine Color Urine Appearance Urine pH Ur Specific [place] Urine Protein Urine Glucose (UA) Urine Ketones Urine Blood Urine Nitrite Ur Leukocyte Esterase Urine RBC Urine WBC Ur Squamous Epith Cells Urine Bacteria Hyaline Casts Urine Opiates Screen Urine Fentanyl Screen Ur Barbiturates Screen Ur Phencyclidine Scrn Ur Amphetamines Screen U Benzodiazepines Scrn [place] Urine Cocaine Screen U Marijuana (THC) Screen Ethyl Alcohol Meds/Allergies Meds Home Medications Medication Instructions Recorded Confirmed Type atorvastatin 10 mg tablet 10 mg PO DAILY 06/02/23 06/02/23 History clonazepam 0.5 mg tablet 0.5 mg PO BID PRN Anxiety 06/02/23 06/02/23 History gabapentin 300 mg capsule 600 mg PO TID 06/02/23 06/02/23 History lamotrigine 150 mg tablet 150 mg PO BEDTIME 06/02/23 06/02/23 History lansoprazole 30 mg capsule,delayed 60 mg PO DAILY 06/02/23 06/02/23 History release lithium carbonate 300 mg tablet 900 mg PO BEDTIME 06/02/23 06/02/23 History methylphenidate HCl 10 mg tablet 10 mg PO DAILY 06/02/23 06/02/23 History topiramate 50 mg tablet 50 mg PO BID 06/02/23 06/02/23 History venlafaxine 150 mg 150 mg PO DAILY 06/02/23 06/02/23 History capsule,extended release 24 hr ziprasidone HCl 20 mg capsule 20 mg PO BID 06/02/23 06/02/23 History Allergies Allergies Allergy/AdvReac Type Severity Reaction Status Date / Time Penicillins [PENICILLINS] Allergy Unknown HIVES Verified 06/01/23 21:50 Sulfa (Sulfonamide Allergy Unknown HIVES Verified 06/01/23 21:50 Antibiotics) [SULFA (SULFONAMIDE ANTIBIOTICS)] metformin Allergy Diarrhea Verified 06/01/23 21:50 Mental Status Exam Mental Status Exam Patient Appearance: Fatigued Patient Orientation: Person, Place, Time and Situation Level of Consciousness: Alert Patient Behavior: Talkative and Good Eye Contact Mood Description: Depressed Affect Description: Flat Patient Cognition Impaired: No Ability to Follow Directions: Good Speech Pattern: Spontaneous Speech Memory Description: Episodic Impaired Hallucinations: None Delusions: Not Present Thought Process: Rumination Thought Content: positive for Perseveration and positive for Suicidal Ideation (denies) Depressive Symptoms: Increased Anxiety and Thoughts of /Suicide (denies) Judgement: Fair Assessment & Plan Assessment & Plan (1) Bipolar 1 disorder, mixed: Status: Acute Code(s): F31.60 - Bipolar disorder, current episode mixed, unspecified (2) Alcoholic intoxication: Status: Acute Qualifiers: Complication of substance-induced condition: uncomplicated Qualified Code(s): F10.920 - Alcohol use, unspecified with intoxication, uncomplicated Code(s): F10.929 - Alcohol use, unspecified with intoxication, unspecified (3) Misuse of cocaine: Status: Acute Code(s): F14.90 - Cocaine use, unspecified, uncomplicated Plan 52 yo female, history of bipolar disorder, alcohol use disorder presents with sx of depression. Reports she has not been taking medications as directed and has increased alcohol consumption. Precipitants include, son, with ASD being bullied at school and ex partner filing with DCF due to pt's relapse. Plan: CV 15 minute checks Diagnostics in range Discussed Vraylar trial-pt to consider Increase [place] to 600 mg bid, level 0.64 Patient educated on: medication risk/benefits and therapeutic strategies Informed Consent: understands Reason for continued inpatient stay Substantial Risk for: rapid decompensation Statement Statement: I have reviewed the history and physical and performed a pertinent examination on my patient. No changes have occurred unless specified. If the History and Physical was not performed prior to admission, the Hospitalist's service will be consulted for completing the admission physical. Time Spent With Patient Time: Total time managing care of this patient today ____ minutes.
[2023-06-03 18:35] VITALS: BP 125/63; PULSE 73; RESP 16; TEMP 36.3; O2SAT 97
[2023-06-03] MEDS: Lithium Carbonate 300 MG CAPSULE 600 MG PO (21:20)
[2023-06-03] MEDS: lamoTRIgine 25 MG TABLET 150 MG PO (21:21)
[2023-06-03] MEDS: clonazePAM 0.5 MG TABLET PO (21:24)
[2023-06-03] MEDS: Acetaminophen 325 MG TABLET 650 MG PO (21:24)
[2023-06-04] MEDS: Omeprazole 40 MG CAPSULE.DR PO (06:34)
[2023-06-04 08:00] VITALS: BP 136/72; PULSE 68; RESP 16; TEMP 36.7; O2SAT 96
[2023-06-04] MEDS: Topiramate 25 MG TABLET 50 MG PO ×2 (08:54→20:49)
[2023-06-04] MEDS: Venlafaxine HCl ER 150 MG CAP.ER.24H PO (08:54)
[2023-06-04] MEDS: Gabapentin 300 MG CAPSULE 600 MG PO ×3 (08:54→20:50)
[2023-06-04] MEDS: Lithium Carbonate 300 MG CAPSULE 600 MG PO ×2 (08:54→20:49)
[2023-06-04] MEDS: Thiamine HCL 100 MG TABLET PO (08:54)
[2023-06-04] MEDS: Atorvastatin Calcium 10 MG TABLET PO (08:54)
[2023-06-04] MEDS: Acetaminophen 325 MG TABLET 650 MG PO (09:30)
[2023-06-04] MEDS: NaPROXEN 250 MG TABLET PO ×2 (12:54→20:50)
--- NOTE | 2023-06-04 15:45 | HO.PSYCHPN ---
Subjective Subjective Date of Service: 06/04/23 Reason For Visit: SI Subjective Notes: 3 Day Healthcare Proxy: No Guardianship: No Medical Problems Affecting Mental Status: No Interim History: Pt discussed discharge. Wanting to return to work on 06/07. Has a prescriber appt within the next 2 weeks Has online therapy DCF wants her to do a substance use program which she is willing to do. She has discussed Naltrexone with the team. Partner she reports wants a reconcilliation and will return to the family home with their child Medication Compliance: Yes Side effects from medications: No Attending Groups: Yes Review of Systems Acute medical concerns: No Medical Review of Systems: unchanged Review of Systems Musculoskeletal: Reports other (knee pain-reports arthritis by history) Mental Status Exam Mental Status Exam Patient Appearance: Appropriate Patient Orientation: Person, Place, Time and Situation Level of Consciousness: Alert Patient Behavior: Talkative and Good Eye Contact Mood Description: Appropriate Affect Description: Flat Patient Cognition Impaired: No Ability to Follow Directions: Good Speech Pattern: Spontaneous Speech Memory Description: Episodic Impaired Hallucinations: None Delusions: Not Present Thought Process: Goal Oriented Thought Content: positive for Goal Oriented and positive for Suicidal Ideation (denies) Depressive Symptoms: Increased Anxiety and Thoughts of /Suicide (denies) Judgement: Good Diagnostics Vital Signs (24Hr): Vital Signs - 24 hr 06/03/23 18:35 06/04/23 08:00 Temperature 97.4 F 98.1 F Pulse Rate 73 68 Respiratory Rate 16 16 Blood Pressure 125/63 136/72 Pulse Oximetry 97 96 Oxygen Delivery Method Room Air Room Air BMI result Body Mass Index 37.9 Labs 06/01/23 23:50 06/03/23 08:14 Labs: Laboratory Results - last 48 hr 06/03/23 08:14 Sodium 140 Potassium 4.3 Chloride 109 H Carbon Dioxide 23 Anion Gap 12 BUN 15 Creatinine 0.96 Estim Creat Clear Calc 89.3 Estimated GFR > 60 Fasting Glucose 103 H Estimat Average Glucose 100 Hemoglobin A1c % 5.1 Calcium 9.7 Total Bilirubin 0.9 AST 14 ALT 17 Alkaline Phosphatase 74 Total Protein 6.9 Albumin 4.2 Triglycerides 106 Cholesterol 153 LDL Cholesterol, Calc 93 HDL Cholesterol 39 L Vitamin B12 288 Folate 13.4 TSH 4.49 H Medications Medications Current Medications Acetaminophen (Acetaminophen 325 Mg Tablet) 650 mg PO Q6H PRN PRN Reason: Headache/Pain Mild Scale (1-3) Last Admin: 06/04/23 09:30 Dose: 650 mg Al Hydroxide/Mg Hydroxide (Magnesium Hydrox/Alum Hydrox 30 Ml Oral.Susp) 30 ml PO Q6H PRN PRN Reason: Heartburn/Nausea Last Admin: 06/02/23 20:22 Dose: 30 ml Atorvastatin Calcium (Atorvastatin Calcium 10 Mg Tablet) 10 mg PO DAILY [facility] Last Admin: 06/04/23 08:54 Dose: 10 mg Clonazepam (Clonazepam 0.5 Mg Tablet) 0.5 mg PO BID PRN PRN Reason: Anxiety Last Admin: 06/03/23 21:24 Dose: 0.5 mg Gabapentin (Gabapentin 300 Mg Capsule) 600 mg PO TID [facility] Last Admin: 06/04/23 14:41 Dose: 600 mg Hydroxyzine HCl (Hydroxyzine Hcl 25 Mg Tablet) 25 mg PO Q6H PRN PRN Reason: Anxiety Lamotrigine (Lamotrigine 25 Mg Tablet) 150 mg PO BEDTIME [facility] Last Admin: 06/03/23 21:21 Dose: 150 mg [place] Carbonate ([place] Carbonate 300 Mg Capsule) 600 mg PO BID [facility] Last Admin: 06/04/23 08:54 Dose: 600 mg Lorazepam (Lorazepam 1 Mg Tablet) 1 mg PO Q4H PRN PRN Reason: ciwa 8-12 Lorazepam (Lorazepam 1 Mg Tablet) 2 mg PO Q4H PRN PRN Reason: ciwa 13-17 Magnesium Hydroxide (Milk Of Magnesia 30 Ml Oral.Susp) 30 ml PO DAILY PRN PRN Reason: Constipation Naltrexone HCl (Naltrexone Hcl 50 Mg Tablet) 50 mg PO DAILY [facility] Naproxen (Naproxen 250 Mg Tablet) 250 mg PO BID PRN PRN Reason: Pain, Mild (Pain Scale 1-3) Last Admin: 06/04/23 12:54 Dose: 250 mg Nicotine Polacrilex (Nicotine Polacrilex Lozenge 4 Mg Lozenge) 4 mg BUCCAL Q2H PRN PRN Reason: Nicotine Cravings Omeprazole (Omeprazole 40 Mg Capsule.Dr) 40 mg PO DAILY@0630 [facility] Last Admin: 06/04/23 06:34 Dose: 40 mg Thiamine HCl (Thiamine Hcl 100 Mg Tablet) 100 mg PO DAILY [facility] Last Admin: 06/04/23 08:54 Dose: 100 mg Topiramate (Topiramate 25 Mg Tablet) 50 mg PO BID [facility] Last Admin: 06/04/23 08:54 Dose: 50 mg Trazodone HCl (Trazodone Hcl 50 Mg Tablet) 50 mg PO BEDTIME MRX1 PRN PRN Reason: Insomnia Venlafaxine HCl (Venlafaxine Hcl Er 150 Mg Cap.Er.24h) 150 mg PO DAILY [facility] Last Admin: 06/04/23 08:54 Dose: 150 mg Allergies Allergies Allergy/AdvReac Type Severity Reaction Status Date / Time Penicillins [PENICILLINS] Allergy Unknown HIVES Verified 06/01/23 21:50 Sulfa (Sulfonamide Allergy Unknown HIVES Verified 06/01/23 21:50 Antibiotics) [SULFA (SULFONAMIDE ANTIBIOTICS)] metformin Allergy Diarrhea Verified 06/01/23 21:50 Assessment & Plan Assessment & Plan (1) Bipolar 1 disorder, mixed: Status: Acute Code(s): F31.60 - Bipolar disorder, current episode mixed, unspecified (2) Alcoholic intoxication: Qualifiers: Complication of substance-induced condition: uncomplicated Qualified Code(s): F10.920 - Alcohol use, unspecified with intoxication, uncomplicated Status: Acute Code(s): F10.929 - Alcohol use, unspecified with intoxication, unspecified (3) Misuse of cocaine: Status: Acute Code(s): F14.90 - Cocaine use, unspecified, uncomplicated Plan 52 yo female, history of bipolar disorder, alcohol use disorder presents with sx of depression. Reports she has not been taking medications as directed and has increased alcohol consumption. Precipitants include, son, with ASD being bullied at school and ex partner filing with DCF due to pt's relapse. Plan: CV 15 minute checks Diagnostics in range Discussed Evgeny trial-pt to consider Increase [place] to 600 mg bid, level 0.64 06/04 Naltrexone 50 mg daily Discharge 06/06/23 to return to her work Appointments are arranged Patient educated on: medication risk/benefits and therapeutic strategies Informed Consent: understands Reason for continued inpatient stay Substantial Risk for: rapid decompensation Time Spent With Patient Time: Total time managing care of this patient today ____ minutes.
[2023-06-04 18:00] VITALS: BP 111/58; PULSE 72; TEMP 35.7; O2SAT 97
[2023-06-04] MEDS: lamoTRIgine 25 MG TABLET 150 MG PO (20:49)
[2023-06-04] MEDS: clonazePAM 0.5 MG TABLET PO (20:49)
[2023-06-04] MEDS: Magnesium Hydrox/Alum Hydrox 30 ML ORAL.SUSP PO (20:55)
[2023-06-05] MEDS: Omeprazole 40 MG CAPSULE.DR PO (06:21)
[2023-06-05 08:00] VITALS: BP 132/73; PULSE 71; RESP 16; TEMP 36.6; O2SAT 96
[2023-06-05] MEDS: Topiramate 25 MG TABLET 50 MG PO ×2 (08:52→20:41)
[2023-06-05] MEDS: Thiamine HCL 100 MG TABLET PO (08:53)
[2023-06-05] MEDS: Atorvastatin Calcium 10 MG TABLET PO (08:53)
[2023-06-05] MEDS: Naltrexone HCl 50 MG TABLET PO (08:53)
[2023-06-05] MEDS: NaPROXEN 250 MG TABLET PO (08:53)
[2023-06-05] MEDS: Lithium Carbonate 300 MG CAPSULE 600 MG PO ×2 (08:53→20:39)
[2023-06-05] MEDS: Venlafaxine HCl ER 150 MG CAP.ER.24H PO (08:53)
[2023-06-05] MEDS: Gabapentin 300 MG CAPSULE 600 MG PO ×3 (08:53→20:39)
--- NOTE | 2023-06-05 10:01 | P.PNPSI_ITS ---
Subjective Subjective Date of Service: 06/05/23 Reason For Visit: SI Interim History: Pt said she is feeling much better. Tolerating medications well. Denies SI/HI. Denies AVH. Interested in discharge. Wanting to return to work on 06/07. Medication Compliance: Yes Review of Systems Review of Systems Constitutional : No Fever, No Chills ENT/Mouth : No Ear Pain, No Nasal Congestion, No sore throat Eyes: No Eye Pain, No Swelling, No Redness Cardiovascular : No Chest Pain, No SOB Respiratory : No Cough, No Sputum, No Dyspnea Gastrointestinal : No Nausea, No Vomiting, No Diarrhea, No Hematochezia, No Melena Genitourinary : No Dysuria, No Urinary Frequency, No Hematuria Musculoskeletal : No Myalgias Skin : No Skin Lesions, No rash Neuro : No Weakness, No Numbness, No Paresthesias, No Dizziness, No Headache Psych : positive Anxiety, positive Depression, no SI/HI Heme/Lymph: No Lymphadenopathy Endocrine : No Polyuria, No Polydipsia All other systems reviewed and are negative Yes all other systems are reviewed and are negative Musculoskeletal: Reports other (knee pain-reports arthritis by history) Psychiatric: Reports anxiety, Reports depression, Reports difficulty concentrating, Reports anhedonia and Reports suicidal ideation (denies) Mental Status Exam Mental Status Exam Patient Appearance: Appropriate Patient Orientation: Person, Place, Time and Situation Level of Consciousness: Alert Patient Behavior: Talkative and Good Eye Contact Mood Description: Appropriate Affect Description: Flat Patient Cognition Impaired: No Ability to Follow Directions: Good Speech Pattern: Spontaneous Speech Memory Description: Episodic Impaired Diagnostics Vital Signs (24Hr): Vital Signs - 24 hr 06/04/23 18:00 06/05/23 08:00 Temperature 96.3 F L 97.9 F Pulse Rate 72 71 Respiratory Rate 16 Blood Pressure 111/58 L 132/73 Pulse Oximetry 97 96 Oxygen Delivery Method Room Air Room Air BMI result Body Mass Index 37.9 Labs 06/01/23 23:50 06/03/23 08:14 Medications Medications Current Medications Acetaminophen (Acetaminophen 325 Mg Tablet) 650 mg PO Q6H PRN PRN Reason: Headache/Pain Mild Scale (1-3) Last Admin: 06/04/23 09:30 Dose: 650 mg Al Hydroxide/Mg Hydroxide (Magnesium Hydrox/Alum Hydrox 30 Ml Oral.Susp) 30 ml PO Q6H PRN PRN Reason: Heartburn/Nausea Last Admin: 06/04/23 20:55 Dose: 30 ml Atorvastatin Calcium (Atorvastatin Calcium 10 Mg Tablet) 10 mg PO DAILY [facility] Last Admin: 06/05/23 08:53 Dose: 10 mg Clonazepam (Clonazepam 0.5 Mg Tablet) 0.5 mg PO BID PRN PRN Reason: Anxiety Last Admin: 06/04/23 20:49 Dose: 0.5 mg Gabapentin (Gabapentin 300 Mg Capsule) 600 mg PO TID [facility] Last Admin: 06/05/23 08:53 Dose: 600 mg Hydroxyzine HCl (Hydroxyzine Hcl 25 Mg Tablet) 25 mg PO Q6H PRN PRN Reason: Anxiety Lamotrigine (Lamotrigine 25 Mg Tablet) 150 mg PO BEDTIME [facility] Last Admin: 06/04/23 20:49 Dose: 150 mg [place] Carbonate ([place] Carbonate 300 Mg Capsule) 600 mg PO BID [facility] Last Admin: 06/05/23 08:53 Dose: 600 mg Lorazepam (Lorazepam 1 Mg Tablet) 1 mg PO Q4H PRN PRN Reason: ciwa 8-12 Lorazepam (Lorazepam 1 Mg Tablet) 2 mg PO Q4H PRN PRN Reason: ciwa 13-17 Magnesium Hydroxide (Milk Of Magnesia 30 Ml Oral.Susp) 30 ml PO DAILY PRN PRN Reason: Constipation Naltrexone HCl (Naltrexone Hcl 50 Mg Tablet) 50 mg PO DAILY [facility] Last Admin: 06/05/23 08:53 Dose: 50 mg Naproxen (Naproxen 250 Mg Tablet) 250 mg PO BID PRN PRN Reason: Pain, Mild (Pain Scale 1-3) Last Admin: 06/05/23 08:53 Dose: 250 mg Nicotine Polacrilex (Nicotine Polacrilex Lozenge 4 Mg Lozenge) 4 mg BUCCAL Q2H PRN PRN Reason: Nicotine Cravings Omeprazole (Omeprazole 40 Mg Capsule.Dr) 40 mg PO DAILY@0630 [facility] Last Admin: 06/05/23 06:21 Dose: 40 mg Thiamine HCl (Thiamine Hcl 100 Mg Tablet) 100 mg PO DAILY [facility] Last Admin: 06/05/23 08:53 Dose: 100 mg Topiramate (Topiramate 25 Mg Tablet) 50 mg PO BID [facility] Last Admin: 06/05/23 08:52 Dose: 50 mg Trazodone HCl (Trazodone Hcl 50 Mg Tablet) 50 mg PO BEDTIME MRX1 PRN PRN Reason: Insomnia Venlafaxine HCl (Venlafaxine Hcl Er 150 Mg Cap.Er.24h) 150 mg PO DAILY [facility] Last Admin: 06/05/23 08:53 Dose: 150 mg Allergies Allergies Allergy/AdvReac Type Severity Reaction Status Date / Time Penicillins [PENICILLINS] Allergy Unknown HIVES Verified 06/01/23 21:50 Sulfa (Sulfonamide Allergy Unknown HIVES Verified 06/01/23 21:50 Antibiotics) [SULFA (SULFONAMIDE ANTIBIOTICS)] metformin Allergy Diarrhea Verified 06/01/23 21:50 Assessment & Plan Assessment & Plan (1) Bipolar 1 disorder, mixed: Status: Acute Code(s): F31.60 - Bipolar disorder, current episode mixed, unspecified (2) Alcoholic intoxication: Qualifiers: Complication of substance-induced condition: uncomplicated Qualified Code(s): F10.920 - Alcohol use, unspecified with intoxication, uncomplicated Status: Acute Code(s): F10.929 - Alcohol use, unspecified with intoxication, unspecified (3) Misuse of cocaine: Status: Acute Code(s): F14.90 - Cocaine use, unspecified, uncomplicated Plan 52 yo female, history of bipolar disorder, alcohol use disorder presents with sx of depression. Reports she has not been taking medications as directed and has increased alcohol consumption. Precipitants include, son, with ASD being bullied at school and ex partner filing with DCF due to pt's relapse. Plan: CV 15 minute checks Diagnostics in range Discussed Evgeny trial-pt to consider Increase [place] to 600 mg bid, level 0.64 06/04 Naltrexone 50 mg daily Discharge 06/06/23 to return to her work Appointments are arranged 06/05: Continue treatment plan. Reason for continued inpatient stay Substantial Risk for: harm to self and rapid decompensation Time Spent With Patient Time: Total time managing care of this patient today ____ minutes.
[2023-06-05] MEDS: Acetaminophen 325 MG TABLET 650 MG PO (14:45)
[2023-06-05 19:45] VITALS: BP 123/66; PULSE 75; RESP 18; TEMP 36.6; O2SAT 96
[2023-06-05] MEDS: lamoTRIgine 25 MG TABLET 150 MG PO (20:39)
[2023-06-05] MEDS: Magnesium Hydrox/Alum Hydrox 30 ML ORAL.SUSP PO (20:40)
[2023-06-06] MEDS: clonazePAM 0.5 MG TABLET PO (00:23)
[2023-06-06 07:49] LABS: Lithium 0.99 mmol/L (0.60-1.20)
--- NOTE | 2023-06-06 08:06 | HO.PSYCHPN ---
Subjective Subjective Date of Service: 06/06/23 Reason For Visit: SI Interim History: Pt said she is feeling much better. Tolerating medications well. Denies SI/HI. Denies AVH. Interested in discharge. Wanting to return to work on 06/07. Review of Systems Review of Systems Constitutional : No Fever, No Chills ENT/Mouth : No Ear Pain, No Nasal Congestion, No sore throat Eyes: No Eye Pain, No Swelling, No Redness Cardiovascular : No Chest Pain, No SOB Respiratory : No Cough, No Sputum, No Dyspnea Gastrointestinal : No Nausea, No Vomiting, No Diarrhea, No Hematochezia, No Melena Genitourinary : No Dysuria, No Urinary Frequency, No Hematuria Musculoskeletal : No Myalgias Skin : No Skin Lesions, No rash Neuro : No Weakness, No Numbness, No Paresthesias, No Dizziness, No Headache Psych : positive Anxiety, positive Depression, no SI/HI Heme/Lymph: No Lymphadenopathy Endocrine : No Polyuria, No Polydipsia All other systems reviewed and are negative Yes all other systems are reviewed and are negative Musculoskeletal: Reports other (knee pain-reports arthritis by history) Psychiatric: Reports anxiety, Reports depression, Reports difficulty concentrating, Reports anhedonia and Reports suicidal ideation (denies) Mental Status Exam Mental Status Exam Patient Appearance: Appropriate Patient Orientation: Person, Place, Time and Situation Level of Consciousness: Alert Patient Behavior: Talkative and Good Eye Contact Mood Description: Appropriate Affect Description: Flat Patient Cognition Impaired: No Ability to Follow Directions: Good Speech Pattern: Spontaneous Speech Memory Description: Episodic Impaired Diagnostics Vital Signs (24Hr): Vital Signs - 24 hr 06/05/23 19:45 Temperature 97.8 F Pulse Rate 75 Respiratory Rate 18 Blood Pressure 123/66 Pulse Oximetry 96 Oxygen Delivery Method Room Air BMI result Body Mass Index 37.9 Labs 06/01/23 23:50 06/03/23 08:14 Labs: Laboratory Results - last 48 hr 06/06/23 07:26 [place] 0.99 Medications Medications Current Medications Acetaminophen (Acetaminophen 325 Mg Tablet) 650 mg PO Q6H PRN PRN Reason: Headache/Pain Mild Scale (1-3) Last Admin: 06/05/23 14:45 Dose: 650 mg Al Hydroxide/Mg Hydroxide (Magnesium Hydrox/Alum Hydrox 30 Ml Oral.Susp) 30 ml PO Q6H PRN PRN Reason: Heartburn/Nausea Last Admin: 06/05/23 20:40 Dose: 30 ml Atorvastatin Calcium (Atorvastatin Calcium 10 Mg Tablet) 10 mg PO DAILY [facility] Last Admin: 06/05/23 08:53 Dose: 10 mg Clonazepam (Clonazepam 0.5 Mg Tablet) 0.5 mg PO BID PRN PRN Reason: Anxiety Last Admin: 06/06/23 00:23 Dose: 0.5 mg Gabapentin (Gabapentin 300 Mg Capsule) 600 mg PO TID [facility] Last Admin: 06/05/23 20:39 Dose: 600 mg Hydroxyzine HCl (Hydroxyzine Hcl 25 Mg Tablet) 25 mg PO Q6H PRN PRN Reason: Anxiety Lamotrigine (Lamotrigine 25 Mg Tablet) 150 mg PO BEDTIME [facility] Last Admin: 06/05/23 20:39 Dose: 150 mg [place] Carbonate ([place] Carbonate 300 Mg Capsule) 600 mg PO BID [facility] Last Admin: 06/05/23 20:39 Dose: 600 mg Lorazepam (Lorazepam 1 Mg Tablet) 1 mg PO Q4H PRN PRN Reason: ciwa 8-12 Lorazepam (Lorazepam 1 Mg Tablet) 2 mg PO Q4H PRN PRN Reason: ciwa 13-17 Magnesium Hydroxide (Milk Of Magnesia 30 Ml Oral.Susp) 30 ml PO DAILY PRN PRN Reason: Constipation Naltrexone HCl (Naltrexone Hcl 50 Mg Tablet) 50 mg PO DAILY [facility] Last Admin: 06/05/23 08:53 Dose: 50 mg Naproxen (Naproxen 250 Mg Tablet) 250 mg PO BID PRN PRN Reason: Pain, Mild (Pain Scale 1-3) Last Admin: 06/05/23 08:53 Dose: 250 mg Nicotine Polacrilex (Nicotine Polacrilex Lozenge 4 Mg Lozenge) 4 mg BUCCAL Q2H PRN PRN Reason: Nicotine Cravings Omeprazole (Omeprazole 40 Mg Capsule.Dr) 40 mg PO BEDTIME [facility] Thiamine HCl (Thiamine Hcl 100 Mg Tablet) 100 mg PO DAILY [facility] Last Admin: 06/05/23 08:53 Dose: 100 mg Topiramate (Topiramate 25 Mg Tablet) 50 mg PO BID [facility] Last Admin: 06/05/23 20:41 Dose: 50 mg Trazodone HCl (Trazodone Hcl 50 Mg Tablet) 50 mg PO BEDTIME MRX1 PRN PRN Reason: Insomnia Venlafaxine HCl (Venlafaxine Hcl Er 150 Mg Cap.Er.24h) 150 mg PO DAILY [facility] Last Admin: 06/05/23 08:53 Dose: 150 mg Allergies Allergies Allergy/AdvReac Type Severity Reaction Status Date / Time Penicillins [PENICILLINS] Allergy Unknown HIVES Verified 06/01/23 21:50 Sulfa (Sulfonamide Allergy Unknown HIVES Verified 06/01/23 21:50 Antibiotics) [SULFA (SULFONAMIDE ANTIBIOTICS)] metformin Allergy Diarrhea Verified 06/01/23 21:50 Assessment & Plan Assessment & Plan (1) Bipolar 1 disorder, mixed: Status: Acute Code(s): F31.60 - Bipolar disorder, current episode mixed, unspecified (2) Alcoholic intoxication: Qualifiers: Complication of substance-induced condition: uncomplicated Qualified Code(s): F10.920 - Alcohol use, unspecified with intoxication, uncomplicated Status: Acute Code(s): F10.929 - Alcohol use, unspecified with intoxication, unspecified (3) Misuse of cocaine: Status: Acute Code(s): F14.90 - Cocaine use, unspecified, uncomplicated Plan 52 yo female, history of bipolar disorder, alcohol use disorder presents with sx of depression. Reports she has not been taking medications as directed and has increased alcohol consumption. Precipitants include, son, with ASD being bullied at school and ex partner filing with DCF due to pt's relapse. Plan: CV 15 minute checks Diagnostics in range Discussed Lizzielafe trial-pt to consider Increase [place] to 600 mg bid, level 0.64 06/04 Naltrexone 50 mg daily Discharge 06/06/23 to return to her work Appointments are arranged 06/05: Continue treatment plan. Time Spent With Patient Time: Total time managing care of this patient today ____ minutes.
[2023-06-06] MEDS: Gabapentin 300 MG CAPSULE 600 MG PO (08:26)
[2023-06-06] MEDS: Thiamine HCL 100 MG TABLET PO (08:26)
[2023-06-06] MEDS: NaPROXEN 250 MG TABLET PO (08:26)
[2023-06-06] MEDS: Naltrexone HCl 50 MG TABLET PO (08:26)
[2023-06-06] MEDS: Venlafaxine HCl ER 150 MG CAP.ER.24H PO (08:26)
[2023-06-06] MEDS: Lithium Carbonate 300 MG CAPSULE 600 MG PO (08:26)
[2023-06-06] MEDS: Atorvastatin Calcium 10 MG TABLET PO (08:26)
[2023-06-06] MEDS: Topiramate 25 MG TABLET 50 MG PO (08:27)
[2023-06-06 08:29] VITALS: BP 114/77; PULSE 83; RESP 16; TEMP 37.1; O2SAT 98
--- NOTE | 2023-06-16 18:44 | P.DS_ITS ---
DS: Providers Provider Date of Service: 06/06/23 Date of admission: 06/02/23 12:33 Date of discharge: 06/06/23 Primary care physician: Pam Davis MD Admitting clinician: Chelsea Valencia Attending physician on admission: Truman Cotter Attending physician on discharge: Truman Cotter Discharging clinician: Chelsea Valencia DS: Diagnosis Discharge Diagnosis (1) Bipolar 1 disorder, mixed: Status: Acute (2) Alcoholic intoxication: Status: Acute (3) Misuse of cocaine: Status: Acute DS: Medications Discharge Medications Home Medications: Home Medications Medication Instructions Recorded Confirmed clonazepam 0.5 mg tablet 0.5 mg PO BID PRN Anxiety 06/02/23 06/02/23 lansoprazole 30 mg capsule,delayed 60 mg PO DAILY 06/02/23 06/02/23 release Previous Rx's Medication Instructions Recorded atorvastatin 10 mg tablet 10 mg PO DAILY #30 tabs 06/04/23 gabapentin 600 mg tablet 600 mg PO TID #90 tabs 06/04/23 lamotrigine 150 mg tablet 150 mg PO BEDTIME #30 tabs 06/04/23 naltrexone 50 mg tablet 50 mg PO DAILY #30 tabs 06/04/23 omeprazole 40 mg capsule,delayed 40 mg PO DAILY@0630 #30 caps 06/04/23 release thiamine mononitrate (vit B1) 100 100 mg PO DAILY #30 tabs 06/04/23 mg tablet topiramate 50 mg tablet 50 mg PO BID #60 tabs 06/04/23 venlafaxine 150 mg 150 mg PO DAILY #30 caps 06/04/23 capsule,extended release 24 hr ziprasidone HCl 20 mg capsule 20 mg PO BID #60 caps 06/04/23 naltrexone microspheres 380 mg 380 mg IM Q4W #1 ea 06/09/23 intramuscular suspension,extended release (Vivitrol) Mental Status Exam Mental Status Exam Patient Appearance: Appropriate Patient Orientation: Person, Place, Time and Situation Level of Consciousness: Alert Patient Behavior: Talkative and Good Eye Contact Mood Description: Appropriate Affect Description: Flat Patient Cognition Impaired: No Ability to Follow Directions: Good Speech Pattern: Spontaneous Speech Memory Description: Episodic Impaired Hallucinations: None Delusions: Not Present Thought Process: Goal Oriented Thought Content: positive for Goal Oriented and positive for Suicidal Ideation (denies) Depressive Symptoms: Increased Anxiety and Thoughts of /Suicide (denies) Judgement: Good DS: Summary Hospital Course Hospital Course: Admission to adult psychiatry for exacerbation of bipolar disorder, alcohol, cocaine use disorders. Pt reported non compliance with meds prior to admission due to discord in a relationship where ex partner filed with DCF when learning of substance use. Pt re-started medications, engaged in discussion with resolution with ex-partner and will return to out patient providers and partner where she will work with DCF on parenting and on reuniting her family. Time spent discussing smoking cessation with patient: 3 to 10 minutes Status at Discharge Functional status at discharge: independent ambulation Overall status at discharge: patient is progressing back to baseline Time Spent with Patient Time attestation: Total time managing care of this patient today ____ minutes. Time spent: Greater than 30 minutes Discharge Plan Discharge Anticipated Discharge Date/Time: 06/06/23 11:00 Patient Disposition: Home, Self-Care Discharge Diagnosis: Mixed Bipolar Disorder Alcohol Use Disorder Stimulant (Cocaine) Use Disorder Referrals: Vivitrol: Lisa Kamara ([facility] [place] [facility]) [Other] - 06/09/23 3:00 pm (Appointment is in person, at the main hospital. Enter through the Main Entrance and take elevators D or E to the 4th floor, it is down the urias to the right) Psych Prescriber: Ruthann Fabian ([facility]) [Other] - 06/15/23 9:20 am (Telehealth/Virtual ) Pam Davis MD [Primary Care Provider] - (Office will call patient to schedule. ) Discharge Medications: New atorvastatin 10 mg Tablet 10 mg PO DAILY Qty: 30 0RF naltrexone 50 mg Tablet 50 mg PO DAILY Qty: 30 0RF omeprazole 40 mg Capsule,Delayed Release(Dr/Ec) 40 mg PO DAILY@0630 Qty: 30 0RF thiamine mononitrate (vit B1) 100 mg Tablet 100 mg PO DAILY Qty: 30 0RF gabapentin 600 mg tablet 600 mg PO TID Qty: 90 0RF Continued clonazepam 0.5 mg tablet 0.5 mg PO BID PRN (Reason: Anxiety) lansoprazole 30 mg capsule,delayed release(DR/EC) 60 mg PO DAILY lamotrigine 150 mg tablet 150 mg PO BEDTIME Qty: 30 0RF venlafaxine 150 mg capsule,extended release 24hr 150 mg PO DAILY Qty: 30 0RF ziprasidone HCl 20 mg capsule 20 mg PO BID Qty: 60 0RF topiramate 50 mg tablet 50 mg PO BID Qty: 60 0RF Discontinued atorvastatin 10 mg tablet 10 mg PO DAILY methylphenidate HCl 10 mg tablet 10 mg PO DAILY gabapentin 300 mg capsule 600 mg PO TID lithium carbonate 300 mg tablet 900 mg PO BEDTIME No Action Vivitrol 380 mg suspension,extended rel recon 380 mg IM Q4W Qty: 1 5RF Discharge Orders: Discharge Order (Routine); Ordered 06/06/23 Ordered By: Chelsea Valencia Diet: Advance to usual diet Activity on Discharge: As tolerated Stand Alone Forms: Patient Portal Discharge page, Community Support Care Plan Goals: Mood and Behavioral Stabilization Work on Sobriety Health Concerns: Mood and Behavioral Stabilization Work on Sobriety Plan of Treatment: Attend scheduled appointments Take medications as directed Assessment: Scheduled discharge, three day notice Discharge Date/Time: 06/06/23 10:59
== END 2023-06-06 10:59 | disposition home or self-care (01) | DRG 753 ==
LOC: HO.ED 06-02 07:01 → HO.PM5 06-02 12:36
PROVIDERS: Emergency Medicine; Social Worker; Admitting Provider Psychiatry & Neurology Psychiatry; Emergency Provider Emergency Medicine Emergency Medical Services; PCP Family Medicine; Visit Provider Clinical Nurse Specialist Psychiatric/Mental Health, Adult
DX: F31.60 Bipolar disorder, current episode mixed, unspecified (principal); R45.851 Suicidal ideations; Z91.148 Patient's other noncompliance with medication regimen for other reason; F10.129 Alcohol abuse with intoxication, unspecified; Y90.6 Blood alcohol level of 120-199 mg/100 ml; F17.210 Nicotine dependence, cigarettes, uncomplicated; Z71.6 Tobacco abuse counseling; Z79.899 Other long term (current) drug therapy
CPT/HCPCS: 36415; 80053; 80061; 80178; 80307; 81001; 82607; 82746; 83036; 84443; 85025; 93005; 99285; S9485

== ENCOUNTER → 2023-06-02 12:33 | Outpatient (BNV) | payer BC, SELFPAY | PROVIDERS: Admitting Provider Psychiatry & Neurology Psychiatry; Emergency Provider Emergency Medicine Emergency Medical Services; PCP Family Medicine; Visit Provider Clinical Nurse Specialist Psychiatric/Mental Health, Adult | DX: F31.60 Bipolar disorder, current episode mixed, unspecified (principal); F10.920 Alcohol use, unspecified with intoxication, uncomplicated; F14.90 Cocaine use, unspecified, uncomplicated | CPT/HCPCS: 90792; 99231; 99232; 99239 ==

== ENCOUNTER 2023-06-09 14:42 | Outpatient (AMB) | payer BC, SELFPAY ==
--- NOTE | 2023-06-09 14:47 | A.OFFVIS_ITS ---
Intake Vital Signs 06/09/23 15:00 BP 130/84 Blood Pressure Location Lt radial Position Sitting Pulse 74 Pulse Source Pulse Oximeter Pulse Oximetry (%) 98 Oxygen Delivery Method Room Air Intake Visit Reasons: mat intake Intake Note: the patient presents for a mat intake Allergies Penicillins [PENICILLINS] Allergy (Unknown, Verified 06/09/23 14:48) HIVES Sulfa (Sulfonamide Antibiotics) [SULFA (SULFONAMIDE ANTIBIOTICS)] Allergy (Unknown, Verified 06/09/23 14:48) HIVES metformin Allergy (Verified 06/09/23 14:48) Diarrhea Do you need a note to return to daycare/school/sports/work: No MAT Intake Nursing Intake Reason for visit: MAT Intake Are you currently using?: No What are you taking?: Alcohol When was your last use?: 06/02/2023 How much?: 5-6 shots and 3-4 beers 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 Pt ended up inpatient on [facility] last week due to this. Pt wants to completely stop drinking, interested in Vivitrol injection. Pt has PC, therapist and psychiatrist. Substance Abuse History Substance Abuse History (includes route, frequency and quantity): Cocaine (has used a few times in the past year.), Benzodiazepines (clonazepam-prescribed for anxiety), Alcohol (heavy use 3x weekly 5-6 shots and 3-4 beers) and Tobacco (10- 20 cigarettes daily) Social History Domestic Violence concerns: no Children: 1 Do you have a support system?: couple of supportive friends Current mode of transportation?: personal vehicle Where are you currently residing?: [place] LMP: years [place] Are you using contraception?: No IV Drug Use Have you ever shared needles?: No Have you ever belonged to a needle exchange program?: No Do you buy needles at a pharmacy?: No Have you ever overdosed?: No Have you ever been hospitalized for an overdose?: No Was Naloxone administered?: No Recovery History Have you had any periods of recovery?: Yes What is your longest time in recovery?: 2 months When was the last time you were in recovery?: this past year Have you ever had inpatient treatment for your substance abuse disorder?: No Have you been in an inpatient detoxification program?: No Have you been in an inpatient Rehab/Long Term house?: No Have you been in an outpatient Methadone Maintenance program?: No Have you been in an outpatient Suboxone Maintenance program?: No Have you been in an AA/NA support program?: No (plans to join AA) Have you had a Recovery Support Feather Edger?: No (interested in organ recovery coordinator) Have you had Peer Support?: No Behavioral Health History Do you have a current provider? If so, who?: [facility] Al[facility] diagnosis: Bipolar disorder History of other addictive behavior: gambling History of inpatient psychiatric hospitalization? If so, how many? Most Recent? Where?: yes, [facility] 06/02/23-first hospitalization History of self harming thoughts?: No History of homicidal or suicidal intentions?: No Medical Conditions Endocarditis?: No Skin Infection: No Seizure related to withdrawal or overdose: No Head or brain injury: No Hepatitis A (if yes, have you been treated?): No Hepatitis B (if yes, have you been treated?): No Hepatitis C (if yes, have you been treated?): No HIV (if yes, have you been treated?): No TB (if yes, have you been treated?): No Other: Yes (Hypertesion, Acid reflux, SCA6 ) Do you have any chronic pain conditions?: SCA6 Details: Patient experiences neuropathy in her hands and legs, balance issues and headaches due to SCA6. Legal History History of incarceration: No Currently on parole or probation: No Court mandated programs: No Pending court cases: No DCF involvement: Yes HPI mat intake HPI Details Pt presents for AUD treatment. Pt reports she has not had a drink in one week. Would like to transition to vivitrol, was taking naltrexone when she was in- patient, d/c this 3 days ago. Reports there is DCF involvement at home, wants to begin treatment for her child. [facility] Medical History Brandt esophagus Obstructive sleep apnea delivery delivered Pre-diabetes HTN (hypertension) Neuropathy SCA-6 (spinocerebellar ataxia type 6) Surgical History History of tonsillectomy Hx of cholecystectomy Social History Household Members: Children Household Members Other:: Bell's 11 year old son resides with her. Housing: House Do you presently have visiting nurse or other home services: No Alcohol intake: current Alcohol intake frequency: 3 or more drinks per day Alcohol type: beer and hard liquor Patient Tobacco Use Status: Current everyday Tobacco user Tobacco use type: Cigarette Cigarette Packs Per Day: 1 Cigarettes Per Day: 20.0 Years Smoked: 30 Second Hand Smoke Exposure: No service: No Sexual orientation: Lesbian/Lopez/Homosexual Review of Systems Const Reports as per HPI Physical Exam Vital Signs: Last Vital Signs Pulse 74 06/09/23 15:00 BP 130/84 06/09/23 15:00 Pulse Ox 98 06/09/23 15:00 Oxygen Delivery Method Room Air 06/09/23 15:00 Const General: cooperative and healthy appearing Orientation/consciousness: patient oriented x3 Resp Effort & Inspection: normal respiratory effort Skin General skin exam: no rashes or lesions noted Neuro General: patient oriented x3 Psych Appearance: grossly normal Mental Status: mental status grossly normal Affect: normal affect Attitude: cooperative Results AMB 14 Panel Urine Drug Screen Urine Marijuana (THC) Negative Last Edit by Gloria Cota CMA on 06/09/23 15:14 Urine Cocaine Negative Last Edit by Gloria Cota CMA on 06/09/23 15:14 Urine Morphine Negative Last Edit by Gloria Cota CMA on 06/09/23 15:14 Urine Methamphetamine Negative Last Edit by Gloria Cota CMA on 06/09/23 15:14 Urine Amphetamine Negative Last Edit by Gloria Cota CMA on 06/09/23 15:1 4 Urine Benzodiazepine Negative Last Edit by Gloria Cota CMA on 06/09/23 15:14 Urine Barbiturates Negative Last Edit by Gloria Cota CMA on 06/09/23 15: 14 Urine Methadone Negative Last Edit by Gloria Cota CMA on 06/09/23 15:14 Urine Buprenorphine Negative Last Edit by Gloria Cota CMA on 06/09/23 15 :14 Urine Tricyclic Antidepressant Negative Last Edit by Gloria Cota CMA on 06/09/23 15:14 Urine MDMA Negative Last Edit by lGoria Cota CMA on 06/09/23 15:14 Urine Oxycodone Negative Last Edit by Gloria Cota CMA on 06/09/23 15:14 Urine Phencyclidine Negative Last Edit by Gloria Cota CMA on 06/09/23 15 :14 Urine Propoxyphene Negative Last Edit by Gloria Cota CMA on 06/09/23 15: 14 Results Reviewed Results Reviewed: Laboratory Last Values POC Urine Buprenorphine Negative 06/09/23 14:48 POC Urine Morphine Negative 06/09/23 14:48 POC Urine Oxycodone Negative 06/09/23 14:48 POC Urine Methadone Negative 06/09/23 14:48 POC Urine Propoxyphene Negative 06/09/23 14:48 POC Urine Barbiturates Negative 06/09/23 14:48 POC U Tricyclic Antidpr Negative 06/09/23 14:48 POC Urine PCP Negative 06/09/23 14:48 POC Ur Amphetamines Negative 06/09/23 14:48 POC Ur Methamphetamine Negative 06/09/23 14:48 POC Urine MDMA Negative 06/09/23 14:48 POC Ur Benzodiazepine Negative 06/09/23 14:48 POC Urine Cocaine Negative 06/09/23 14:48 POC Ur Marijuana (THC) Negative 06/09/23 14:48 Assessment & Plan Assessment & Plan (1) Alcohol use disorder, severe, dependence: Comment: Plan to order vivitrol Pt to follow up in 1 week Risk reduction discussed Education about vivitrol provided AA and organ recovery coordinator resources provided. Code(s): F10.20 - Alcohol dependence, uncomplicated Orders: Orders AMB 14 Panel Urine Drug Screen 06/09/23 Z51.81 - Encounter for therapeutic drug level monitoring Lisa Kamara CNP Medications: New naltrexone microspheres ER (Vivitrol) 380 mg IM Q4W 1 ea 5RF Connie Winston NP Coding Level of Care Code New Pt Level 4 (11369) Diagnoses Alcohol use disorder, severe, dependence F10.20
[2023-06-09 15:00] VITALS: BP 130/84; PULSE 74; O2SAT 98
== END 2023-06-09 15:41 | disposition home or self-care (01) ==
PROVIDERS: PCP Family Medicine; Visit Provider Nurse Practitioner Family
DX: F10.20 Alcohol dependence, uncomplicated (principal)
CPT/HCPCS: 99204; 99214

== ENCOUNTER → 2023-06-09 14:42 | Outpatient (BNVA) | payer BC, SELFPAY | PROVIDERS: PCP Family Medicine; Visit Provider Nurse Practitioner Psychiatric/Mental Health | DX: F10.20 Alcohol dependence, uncomplicated (principal) | CPT/HCPCS: 80305 ==

== ENCOUNTER 2023-07-21 13:41 | Outpatient (AMB) | payer BC, SELFPAY ==
--- NOTE | 2023-07-21 13:46 | A.OFFVIS_ITS ---
Intake Vital Signs 07/21/23 13:57 BP 126/84 Blood Pressure Location Lt radial Position Sitting Pulse 82 Pulse Source Pulse Oximeter Pulse Oximetry (%) 97 Oxygen Delivery Method Room Air Intake Visit Reasons: Urmila Inj Intake Note: The patient is here for a urmila inj Valet Parking Attendant Required: No Allergies Penicillins [PENICILLINS] Allergy (Unknown, Verified 07/21/23 13:46) HIVES Sulfa (Sulfonamide Antibiotics) [SULFA (SULFONAMIDE ANTIBIOTICS)] Allergy (Unknown, Verified 07/21/23 13:46) HIVES metformin Allergy (Verified 07/21/23 13:46) Diarrhea Home Medications Naltrexone Microspheres (Naltrexone Microspheres 380 Mg Abena.Er.Rec) 380 mg IM Q28D BENITA Do you need a note to return to daycare/school/sports/work: No HPI Urmila Inj HPI Details Patient presents to the clinic for her first vivitrol infection Has been tolerating PO naltrexone well She reports she spent 21 days at a rehab in [place] recently. Feeling hopeful about her recovery with the injection in place [facility] Medical History Brandt esophagus Obstructive sleep apnea delivery delivered Pre-diabetes HTN (hypertension) Neuropathy SCA-6 (spinocerebellar ataxia type 6) Surgical History History of tonsillectomy Hx of cholecystectomy Social History Household Members: Children Household Members Other:: Bell's 11 year old son resides with her. Housing: House Do you presently have visiting nurse or other home services: No Alcohol intake: current Alcohol intake frequency: 3 or more drinks per day Alcohol type: beer and hard liquor Patient Tobacco Use Status: Current everyday Tobacco user Tobacco use type: Cigarette Cigarette Packs Per Day: 1 Cigarettes Per Day: 20.0 Years Smoked: 30 Second Hand Smoke Exposure: No service: No Sexual orientation: Lesbian/Lopez/Homosexual Review of Systems Const Reports as per HPI Physical Exam Vital Signs: Last Vital Signs Pulse 82 07/21/23 13:57 BP 126/84 07/21/23 13:57 Pulse Ox 97 07/21/23 13:57 Oxygen Delivery Method Room Air 07/21/23 13:57 Const General: cooperative and no acute distress Resp Effort & Inspection: normal respiratory effort Skin General skin exam: no rashes or lesions noted Psych Appearance: grossly normal Mental Status: mental status grossly normal Speech and movement: Normal speech and movement present Thought content: Normal thought content present Office Meds Vivitrol 380 mg intramuscular suspension,extended release Performing Provider: Connie Winston NP Performing Location: [facility] Administered by: Connie Winston NP on 07/21/23 14:10 Dose Route Admin Location Dispensed Lot Number Expiration Date [facility] Methods Engineer 380 mg IM RG 380 mg [id number] 10/13/25 38246-564-22 [employer] Comments: Pt tolerated injection well. Reviewed signs and symptoms of infection with her. Encouraged pt to call [facility] with questions or concerns. Assessment & Plan Assessment & Plan (1) Alcohol use disorder, severe, dependence: Comment: Plan to order vivitrol Pt to follow up in 1 week Risk reduction discussed Education about vivitrol provided AA and motor coach chauffeur resources provided. Code(s): F10.20 - Alcohol dependence, uncomplicated Plan: -Pt tolerated injection well -Injection information reviewed with patient, patient then provided with medication insert -Follow up 4 weeks -Encouraged to call office with questions or concerns Orders: Orders AMB Naltrexone Injection Patient Supplied Today F10.20 - Alcohol dependence, uncomplicated AMB HCG Urine Test Today Z32.01 - Encounter for test, result positive, Z32.02 - Encounter for test, result negative Coding Level of Care Code Est Pt Level 3 (01293) Diagnoses Alcohol use disorder, severe, dependence F10.20
[2023-07-21 13:57] VITALS: BP 126/84; PULSE 82; O2SAT 97
== END 2023-07-21 15:25 | disposition home or self-care (01) ==
PROVIDERS: PCP Family Medicine; Visit Provider Nurse Practitioner Family
DX: Z32.02 Encounter for pregnancy test, result negative (principal); Z32.01 Encounter for pregnancy test, result positive
CPT/HCPCS: 99213; J2315

== ENCOUNTER → 2023-07-21 13:41 | Outpatient (BNVA) | payer BC, SELFPAY | PROVIDERS: PCP Family Medicine; Visit Provider Nurse Practitioner Family | DX: F10.20 Alcohol dependence, uncomplicated (principal) | CPT/HCPCS: 81025; 96372; J2315 ==

== ENCOUNTER 2023-08-24 14:05 | Outpatient (AMB) | payer BC, SELFPAY ==
--- NOTE | 2023-08-24 14:15 | A.OFFVISCC_ITS ---
Intake Vital Signs 08/24/23 14:32 BP 138/88 Blood Pressure Location Lt radial Position Sitting Pulse 76 Pulse Source Pulse Oximeter Pulse Oximetry (%) 98 Oxygen Delivery Method Room Air Intake Visit Reasons: Urmila Inj Intake Note: the patient presents for a mat visit Automotive Technician Required: No Allergies Penicillins [PENICILLINS] Allergy (Unknown, Verified 08/24/23 14:35) HIVES Sulfa (Sulfonamide Antibiotics) [SULFA (SULFONAMIDE ANTIBIOTICS)] Allergy (Unknown, Verified 08/24/23 14:35) HIVES metformin Allergy (Verified 08/24/23 14:35) Diarrhea HPI Urmila Inj HPI Details Pt presents for monthly vivitrol injection Reports recovery is going well, she has had no cravings for alcohol since starting the naltrexone. Denies any concerns for side effects. [facility] Medical History Brandt esophagus Obstructive sleep apnea delivery delivered Pre-diabetes HTN (hypertension) Neuropathy SCA-6 (spinocerebellar ataxia type 6) Surgical History History of tonsillectomy Hx of cholecystectomy Social History Household Members: Children Household Members Other:: Bell's 11 year old son resides with her. Housing: House Do you presently have visiting nurse or other home services: No Alcohol intake: current Alcohol intake frequency: 3 or more drinks per day Alcohol type: beer and hard liquor Patient Tobacco Use Status: Current everyday Tobacco user Tobacco use type: Cigarette Cigarette Packs Per Day: 1 Cigarettes Per Day: 20.0 Years Smoked: 30 Second Hand Smoke Exposure: No service: No Sexual orientation: Lesbian/Lopez/Homosexual Review of Systems Const Reports as per HPI Physical Exam Vital Signs: Last Vital Signs Pulse 76 08/24/23 14:32 BP 138/88 08/24/23 14:32 Pulse Ox 98 08/24/23 14:32 Oxygen Delivery Method Room Air 08/24/23 14:32 Const General: cooperative and no acute distress Resp Effort & Inspection: normal respiratory effort Psych Appearance: grossly normal Mental Status: mental status grossly normal Speech and movement: Normal speech and movement present Affect: normal affect Office Meds Vivitrol 380 mg intramuscular suspension,extended release Performing Provider: Connie Winston NP Performing Location: [facility] Administered by: Connie Winston NP on 08/24/23 16:04 Dose Route Admin Location Dispensed Lot Number Expiration Date [facility] Test Case Developer 380 mg IM LG 380 mg [id number] 11/13/25 [id number] [employer] Comments: Pt tolerated injection well. Reviewed signs and symptoms of infection, encouraged pt to call [facility] with questions or concerns. Results AMB 14 Panel Urine Drug Screen Urine Marijuana (THC) Negative Last Edit by Gloria Cota CMA on 08/24/23 15:10 Urine Cocaine Negative Last Edit by Gloria Cota CMA on 08/24/23 15:10 Urine Morphine Negative Last Edit by Gloria Cota CMA on 08/24/23 15:10 Urine Methamphetamine Negative Last Edit by Gloria Cota CMA on 08/24/23 15:10 Urine Amphetamine Negative Last Edit by Gloria Cota CMA on 08/24/23 15:1 0 Urine Benzodiazepine Negative Last Edit by Gloria Cota CMA on 08/24/23 15:10 Urine Barbiturates Negative Last Edit by Gloria Cota CMA on 08/24/23 15: 10 Urine Methadone Negative Last Edit by Gloria Cota CMA on 08/24/23 15:10 Urine Buprenorphine Negative Last Edit by Gloria Cota CMA on 08/24/23 15 :10 Urine Tricyclic Antidepressant Negative Last Edit by Gloria Cota CMA on 08/24/23 15:10 Urine MDMA Negative Last Edit by Gloria Cota CMA on 08/24/23 15:10 Urine Oxycodone Negative Last Edit by Gloria Cota CMA on 08/24/23 15:10 Urine Phencyclidine Negative Last Edit by Gloria Cota CMA on 08/24/23 15 :10 Urine Propoxyphene Negative Last Edit by Gloria Cota CMA on 08/24/23 15: 10 Results Reviewed Results Reviewed: Laboratory Last Values POC Urine Buprenorphine Negative 08/24/23 15:09 POC Urine Morphine Negative 08/24/23 15:09 POC Urine Oxycodone Negative 08/24/23 15:09 POC Urine Methadone Negative 08/24/23 15:09 POC Urine Propoxyphene Negative 08/24/23 15:09 POC Urine Barbiturates Negative 08/24/23 15:09 POC U Tricyclic Antidpr Negative 08/24/23 15:09 POC Urine PCP Negative 08/24/23 15:09 POC Ur Amphetamines Negative 08/24/23 15:09 POC Ur Methamphetamine Negative 08/24/23 15:09 POC Urine MDMA Negative 08/24/23 15:09 POC Ur Benzodiazepine Negative 08/24/23 15:09 POC Urine Cocaine Negative 08/24/23 15:09 POC Ur Marijuana (THC) Negative 08/24/23 15:09 Assessment & Plan Assessment & Plan (1) Alcohol use disorder, severe, dependence: Code(s): F10.20 - Alcohol dependence, uncomplicated Plan: -Continue vivitrol injections -Follow up 4 weeks Orders: Orders AMB 14 Panel Urine Drug Screen Today Z51.81 - Encounter for therapeutic drug level monitoring AMB Naltrexone Injection Today F10.20 - Alcohol dependence, uncomplicated Medications: Discontinued naltrexone Discontinued Reason: Patient Completed Course 50 mg PO DAILY 30 tabs 0RF Coding Level of Care Code Est Pt Level 3 (35193) Diagnoses Alcohol use disorder, severe, dependence F10.20
[2023-08-24 14:32] VITALS: BP 138/88; PULSE 76; O2SAT 98
== END 2023-08-24 15:17 | disposition home or self-care (01) ==
PROVIDERS: PCP Family Medicine; Visit Provider Nurse Practitioner Family
DX: Z51.81 Encounter for therapeutic drug level monitoring (principal); F10.20 Alcohol dependence, uncomplicated
CPT/HCPCS: 99213

== ENCOUNTER → 2023-08-24 14:05 | Outpatient (BNVA) | payer BC, SELFPAY | PROVIDERS: PCP Family Medicine; Visit Provider Nurse Practitioner Family | DX: F10.20 Alcohol dependence, uncomplicated (principal) | CPT/HCPCS: 80305; 96372; J2315 ==

== ENCOUNTER 2023-09-22 14:32 | Outpatient (AMB) | payer BC, SELFPAY ==
--- NOTE | 2023-09-22 14:37 | AM.OFFVISNUR ---
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 This is patient's 3rd injection. Reports last alcohol use was end of May 2023. Denies cravings. Reports recovery is going well. Office Meds Vivitrol 380 mg intramuscular suspension,extended release Performing Provider: Connie Winston NP Performing Location: [facility] Administered by: Pam Jackson on 09/22/23 15:31 Dose Route Admin Location Dispensed Lot Number Expiration Date [facility] [employer] 380 mg IM RG 380 mg [id number] 11/13/25 69858-461-29 [employer] Comments: Pt tolerated injection well. Educated on signs/symptoms of infection, encouraged to call the [facility] with questions or concerns. Results AMB 14 Panel Urine Drug Screen Urine Marijuana (THC) Negative Last Edit by Gloria Cota CMA on 09/22/23 14:58 Urine Cocaine Negative Last Edit by Gloria Cota CMA on 09/22/23 14:58 Urine Morphine Negative Last Edit by Gloria Cota CMA on 09/22/23 14:58 Urine Methamphetamine Negative Last Edit by Gloria Cota CMA on 09/22/23 14:58 Urine Amphetamine Negative Last Edit by Gloria Cota CMA on 09/22/23 14:58 Urine Benzodiazepine Negative Last Edit by Gloria Cota CMA on 09/22/23 14:58 Urine Barbiturates Negative Last Edit by Gloria Cota CMA on 09/22/23 14:58 Urine Methadone Negative Last Edit by Gloria Cota CMA on 09/22/23 14:58 Urine Buprenorphine Negative Last Edit by Gloria Cota CMA on 09/22/23 14:58 Urine Tricyclic Antidepressant Negative Last Edit by Gloria Cota CMA on 09/22/23 14:58 Urine MDMA Negative Last Edit by Gloria Cota CMA on 09/22/23 14:58 Urine Oxycodone Negative Last Edit by Gloria Cota CMA on 09/22/23 14:58 Urine Phencyclidine Negative Last Edit by Gloria Cota CMA on 09/22/23 14:58 Urine Propoxyphene Negative Last Edit by Gloria Cota CMA on 09/22/23 14:58 AMB Test Urine AMB Test Urine Negative Last Edit by Gloria Cota CMA on 09/22/23 15:00 Coding Assessment & Plan Assessment & Plan Orders: Orders AMB Naltrexone Injection Patient Supplied Today F10.20 - Alcohol dependence, uncomplicated AMB 14 Panel Urine Drug Screen Today Z51.81 - Encounter for therapeutic drug level monitoring AMB HCG Urine Test Today Z32.01 - Encounter for test, result positive, Z32.02 - Encounter for test, result negative
[2023-09-22 14:49] VITALS: BP 130/78; PULSE 88; O2SAT 98
== END 2023-09-22 15:14 | disposition home or self-care (01) ==
PROVIDERS: PCP Family Medicine
DX: F10.20 Alcohol dependence, uncomplicated (principal)

== ENCOUNTER → 2023-09-22 14:32 | Outpatient (BNVA) | payer BC, SELFPAY | PROVIDERS: PCP Family Medicine | DX: F10.20 Alcohol dependence, uncomplicated (principal) | CPT/HCPCS: 80305; 81025; 96372; J2315 ==

== ENCOUNTER 2024-02-25 13:34 | Outpatient (REF) | payer BC, SELFPAY | END 2024-02-25 13:35 | disposition home or self-care (01) | LOC: HO.LAB 13:34 | PROVIDERS: PCP Family Medicine; Visit Provider Registered Nurse | DX: Z79.899 Other long term (current) drug therapy (principal) | CPT/HCPCS: 36415; 80178 ==

== ENCOUNTER 2024-04-21 09:49 | Outpatient (REF) | payer BC, SELFPAY ==
[2024-04-21 12:19] LABS: Lithium 0.88 mmol/L (0.60-1.20)
== END 2024-04-21 09:50 | disposition home or self-care (01) ==
LOC: HO.LAB 09:49
PROVIDERS: PCP Family Medicine; Visit Provider Registered Nurse
DX: Z51.81 Encounter for therapeutic drug level monitoring (principal); Z79.899 Other long term (current) drug therapy
CPT/HCPCS: 36415; 80178

== ENCOUNTER 2024-07-04 07:30 | Outpatient (REF) | payer BC, SELFPAY ==
[2024-07-04 08:32] LABS: Lithium 0.55 mmol/L (0.60-1.20)
[2024-07-04 08:40] LABS: Creatinine Urine 402.54 mg/dL; Microalbum/Creatinine Ratio Ur 8.9 ug/mg cr (<30)
[2024-07-04 08:45] LABS: Anion Gap 11 (12-20); Blood Urea Nitrogen 16 mg/dL (9-16); Carbon Dioxide 24 mmol/L (22-29); Chloride 110 mmol/L (96-108); Cholesterol 215 mg/dL (<200); Estimated Glomerular Filt Rate 42; Glucose Random 125 mg/dL (60-115); HDL Cholesterol 40 mg/dL (>40); LDL Cholesterol Calculated 140 mg/dL (<100); Potassium 4.4 mmol/L (3.3-5.1); Sodium 141 mmol/L (135-145); Triglycerides 178 mg/dL (<150)
[2024-07-04 08:47] LABS: Estimated Average Glucose 108 mg/dL; Hemoglobin A1C 130.0856 umol/L; Hemoglobin A1c % 5.4 % (<6.0); Total Hemoglobin (HGBA1C) 3692.8401 umol/L
[2024-07-04 09:01] LABS: Free T4 (Free Thyroxine) 0.87 ng/dL (0.71-1.85); Thyroid Stimulating Hormone 5.73 uIU/mL (0.32-4.0)
== END 2024-07-04 07:31 | disposition home or self-care (01) ==
LOC: HO.LAB 07:30
PROVIDERS: Absent Provider Family Medicine; PCP Family Medicine; Visit Provider Registered Nurse
DX: Z51.81 Encounter for therapeutic drug level monitoring (principal); Z79.899 Other long term (current) drug therapy; R94.6 Abnormal results of thyroid function studies; E11.9 Type 2 diabetes mellitus without complications
CPT/HCPCS: 36415; 80048; 80061; 80178; 82043; 82570; 83036; 84439; 84443

== ENCOUNTER 2024-09-22 07:41 | Outpatient (REF) | payer OTHER, SELFPAY | END 2024-09-22 07:42 | disposition home or self-care (01) | LOC: HO.MAMMO 07:41 | PROVIDERS: PCP Family Medicine; Visit Provider Family Medicine | DX: Z12.31 Encounter for screening mammogram for malignant neoplasm of breast (principal) ==

== ENCOUNTER → 2024-09-22 07:45 | Outpatient (BNV) | payer OTHER, SELFPAY | PROVIDERS: PCP Family Medicine; Visit Provider Internal Medicine | DX: Z12.31 Encounter for screening mammogram for malignant neoplasm of breast (principal) | CPT/HCPCS: 77063; 77067 ==

== ENCOUNTER 2024-11-10 06:58 | Outpatient (RCR) | payer OTHER, SELFPAY | END 2024-11-10 07:53 | disposition home or self-care (01) | LOC: HO.PT 06:58 | PROVIDERS: PCP Family Medicine; Visit Provider Emergency Medicine | DX: M25.561 Pain in right knee (principal); M17.11 Unilateral primary osteoarthritis, right knee | CPT/HCPCS: 97110; 97112; 97161 ==

== ENCOUNTER 2025-03-29 07:01 | Outpatient (RCR) | payer OTHER, SELFPAY | END 2025-05-02 07:34 | disposition home or self-care (01) | LOC: HO.PT 07:01 | PROVIDERS: PCP Family Medicine; Visit Provider Orthopaedic Surgery | DX: Z47.1 Aftercare following joint replacement surgery (principal); Z96.612 Presence of left artificial shoulder joint | CPT/HCPCS: 97110; 97140; 97162; 97530 ==